=== PATIENT | female | born 1950 | race Caucasian/White ===

== ENCOUNTER 2019-10-22 16:28 | Emergency (ER) | payer MEDICARE, OTHER, SELFPAY ==
[2019-10-22 16:30] VITALS: BP 165/110; PULSE 123; PULSE 125; RESP 17; RESP 18; TEMP 36.2; O2SAT 97; O2SAT 98; BMI 31.1
--- NOTE | 2019-10-22 16:56 | ED.VIS.GEN ---
History of Present Illness Chief Complaint: Nosebleed Informant: Patient Onset: Today, Hours Context: Sudden Onset Timing: Intermittent Quality: Blood from predominately right naris Location: Right predominantly Current Severity: Moderate Maximum Severity: Severe Worsened by: Nothing Relieved by: Pressure Associated Symptoms: None Narrative: Patient is an elderly woman who presents with spontaneous nosebleed that predominately started on the right side several hours prior to presentation. She was talking on the phone. She denies history of trauma. She is not on an anticoagulant or antiplatelet medicine. She states there was blood noted in the back of her throat. The bleeding was not controlled with nose clip. She is presently squeezing her nose. There is no active bleeding at this time. Patient denies bruising easily. She denies black or maroon stool. Denies blood in her urine. Prior similar symptoms: No Recent Illness/Hospitalization: No - Past Medical History (1) Benign essential hypertension Status: Chronic (2) Depression Status: Chronic (3) Insomnia Status: Chronic Past Medical History - Allergies and Home Meds Allergies/Adverse Reactions: Allergies No Known Allergies Allergy (Verified 10/22/19 16:29) Primary Care Physician: Constantin Augustin III, MD [Primary Care Provider] - Prior records reviewed: Yes Surgical History: noncontributory Lives: Alone Smoking Status: Former smoker Alcohol: None Drugs: None Review of Systems General: Denies: Chills, Fever, Malaise ENT: Reports: - - Post axis. Denies: Bilateral ear pain, Rhinorrhea, Sore throat Cardiovascular: Denies: Chest pain, Palpitations Respiratory: Denies: Dyspnea, Cough, Dyspnea on exertion Gastrointestinal: Denies: Abdominal pain, Nausea, Vomiting Musculoskeletal: Denies: Myalgias, Arthralgias, Neck pain, Back pain Skin: Denies: Rash, Wounds Neurological: Denies: Headache, Parasthesia, Numbness Endocrine: Denies: Polyuria, Polydipsia Hematologic: Denies: Easy bruising, Easy bleeding Physical Exam Vital Signs/Narrative: Vital Signs Temp Pulse Resp BP Pulse Ox 10/22/19 16:30 97.2 F L 123 H 18 165/110 H 98 Inital Vital Signs reviewed: Yes General: Well nourished, Well developed, Obese, No Acute Distress Head: Normocephalic, Atraumatic Eyes: Perrl, EOMI ENT: Moist mucous membranes, No rhinorrhea, - - Noted right and left vestibule and posterior pharynx Neck: Supple, Nontender, No lymphadenopathy, No JVD Cardiovascular: Regular rate, Regular rhythm, No murmurs, Normal S1, Normal S2 Respiratory: No distress, CTA bilaterally Skin: Normal color, No rash, No Trauma. Negative for: Diaphoresis, Jaundice Neurological: Alert, Oriented x3, Cranial nerves II-XII grossly intact, Normal Strength, Normal Sensation Psychological: Normal affect, Normal Mood Diagnostic/Tx/Re-eval - Medical Decision Making Patient near his packed with cotton saturated Dimas solution bilaterally. Patient had identifiable anterior bleed over the middle of Jose Carlos box plexus on the right. The area was cauterized. She was observed for 30 minutes. She was ambulated. She is had no further bleeding after 1 hour of observation. Plan is to discharge to home to follow-up with ENT. Procedures Procedure(s): Silver nitrate sticks were used for cauterization of bleeding site right side, ED Disposition - Plan for ED Patient: Disposition: Home or Assisted Living Diagnosis: Acute anterior epistaxis Instructions: ED Epistaxis Adult Referrals: Constantin Augustin III, MD [Primary Care Provider] - Chandra Stewart MD [STAFF PHYSICIAN] - 3-5 Days
[2019-10-22] MEDS: Mixture 30 ML Bottle 20 ML TOPICAL (17:38)
[2019-10-22] MEDS: Silver Nitrate (BKC) 4 EACH TOPICAL (18:40)
[2019-10-22 19:23] VITALS: BP 157/91; PULSE 84; RESP 16; O2SAT 96
== END 2019-10-22 19:30 | disposition home or self-care (01) ==
PROVIDERS: Emergency Provider Emergency Medicine; PCP Family Medicine
DX: R04.0 Epistaxis (principal); I10 Essential (primary) hypertension; F32.9 Major depressive disorder, single episode, unspecified; Z79.899 Other long term (current) drug therapy; Z87.891 Personal history of nicotine dependence
CPT/HCPCS: 30901; 99282

== ENCOUNTER 2020-08-24 09:11 | Outpatient (RCR) | payer MEDICARE, OTHER, SELFPAY | END 2020-08-24 23:59 | LOC: IMMUN 09:11 | PROVIDERS: PCP Family Medicine; Visit Provider Family Medicine | DX: Z23 Encounter for immunization (principal) | CPT/HCPCS: 0011A; 0012A; 91301 ==

== ENCOUNTER 2022-02-15 14:30 | Outpatient (RCR) | payer MEDICARE, OTHER, SELFPAY ==
--- NOTE | 2022-02-18 16:36 | HP.PTEVAL_ITS ---
Patient's Visit Information YOVANI SUN is a 71 year old F referred to Physical Therapy by Dr. Kriss Meyer MD with a diagnosis of CERVICAL DYSTONIA. Date of Evaluation: 01/22/22 Physical Therapist: Tara Loo PT, Cert MDT - Visit Plan Frequency: 2-3x /Week Duration: 4-6 Weeks Plan: Pt compliant w/a good HEP w/stretches. Will focus on STM next rx both in supine and seated position (maybe even prone if cinthya'd). Gentle STM and Gentle Cervical Stretching. POSTURE CORRECTION/STRENGTHENING, INSTRUCTION IN APPROPRIATE BODY MECHANICS AND ACTIVITY MODIFICATIONS. TOMMY UE ROM (L UE tighter than right), STRETCHING AND STRENGTHENING (Left weaker). HEP IN STRUCTION. Cervical Strengthening with isometrics only. Manual Therapy for Trigger point release of neck muscles including Sternocleidomastoid. Physical Therapy to help treat the symptoms of dystonia that affect movement, posture, balance, stamina and performing everyday tasks like driving, walking, carrying and working. - Subjective Diagnosis: Cervical dystonia, also called spasmodic torticollis, is a painful condition in which your neck muscles contract involuntarily, causing your head to twist or turn to one side. Cervical dystonia can also cause your head to unc ontrollably tilt forward or backward. Work/Leisure: WORKS [employer] AT [employer]. A LOT OF COMPUTER WORK. Present symptoms: INTERMITTENT RIGHT NECK PAIN. CONSTANT RIGHT 5TH DIGIT NUMBNESS AND SOMETIMES TINGLING AND A BIT IN THE RING FINGER. LEFT UPPER ARM PAIN. INTERMITTENT L UE ELECTRICITY TINGLING. A NEED TO LOOK DOWN AND TO THE LEFT AT TIMES TO RELEIVES PRESSURE. SOMETIMES NERVE PAIN UP THE BACK OF HEAD. HARDNESS ON THE RIGHT NECK AREA. LEFT NECK TIGHTNESS. Present since: ABOUT 3 YEARS AGO. Pain Scale: Worst - 3/10 Least - 0/10. Currently: 0/10. Commenced as a result of: NO APPARENT REASON. Symptoms at onset: A NEED TO TURN HEAD AND LOOK TO THE LEFT WHILE WALKING AT NIGHT. Worse: STRESS, LACK OF SLEEP, FEELS LIKE A CONDITIONED RESPONSE SOMETIMES. Better: MASSAGE - TEMPORARY RELIEF, MAYBE HEAT, BEING ACTIVE. Disturbed sleep: SOMETIMES MAKE IT DIFFICULT TO GET TO SLEEP AT NIGHT. NO LONGER WAKING HER UP AT NIGHT. Previous history/Previous treatment: HAS BEEN TO TWO [facility] ABOUT 6 SESSIONS EA WITHOUT BENEFIT. MASSAGE THERAPY IN THE PAST WITH TEMPORARY BENEFIT. DRY NEEDLING IN [facility]ES WITH DPT ABOUT 2 TIMES WITHOUT MUCH BENEFIT. PT MASSAGE AND MANIPUATION AND EXERCISES X ABOUT 5-6 VISITS WITHOUT MUCH BENEFIT - BOTOX RECOMMENDED - REFERRED TO NEUROLOGIST AND GOT BOTOX November FOR THE FIRST TIME WITH SOME BENEFIT. NEUROLOGIST RECOMM ENDED PHYSICAL THERPAY AND MASSAGE TOGETHER WITH THE BOTOX NOW. JORGE FROM DR. SORENSEN JUL 2021 AND IT STOPPED THE NERVE PAIN UP THE BACK OF NECK INTO HEAD. MUSCLE RELAXER. Dizziness: NO. Tinnitis: NO. Nausea: NO. Shortness of Breath: NO. Difficulty Swollowing: NO. Gait: NORMAL. Accidents: NO. Unexplained weight loss: NO. Imaging: UNSUCCESSFUL MRI DUE TO TOO MUCH BODY MVMT. DID HAVE NECK X-RAYS SHOWING SOME ARTHRITIS PER PATIENT REPORT. PMH/Recent major surgery: HTN AND HIGH CHOLESTEROL. OTHER: HAS NOT BEEN ABLE TO DRIVE VERY FAR BECAUSE HEAD WAS MOVING SO MUCH AND DIDN'T FEEL SAFE BUT IS COMFORTABLE DRIVING LOCALLY. PATIENT REPORTS THAT SINCE HAVING THE BOTOX HER HEAD MVMTS ARE SO MUCH BETTER BUT SOME DAYS ARE BETTER THAN OTHERS. PATIENT REPORTS THAT SHE HAS RE-STARED HER HOME EX FROM LAST EPISODE OF CARE WITH PT 2 TIMES A DAY AND THEY ARE MUCH LESS PAINFUL THAN BEFORE THE BOTOX. EX'S: CERVICAL ISO'S MULTIPLE ANGLES TO THE RIGHT. R SCALENE STRETCHING, TOMMY UT ST RETCHING, PEC STRETCHING, CERVICAL RETRACTION, SUPINE NECK EXTENSION, SUPINE SHLD FLEXION STRETCHING (LEFT SHLD STIFFER THAN RIGHT). - Pain NECK Pain Intensity (Out of 10): 1 Comment: discomfort R UE Pain Intensity (Out of 10): 0 Comment: numbness in 5th digit L UE Pain Intensity (Out of 10): 0 - Objective Sitting Posture/Standing Posture: FH. RSH'S. ABLE TO HOLD HEAD MIDLINE. INCREASED KYPHOSIS. Other Observations: HEAD TENDS TO INTERMITTENTLY JERK TO LEFT ROTATION. Sensory deficit: TOMMY UE LIGHT TOUCH SENSATION IS GROSSLY INTACT AND SYMMETRICAL. OTHER: LEFT SHLD PAIN, DECREASED ROM AND STRENGTH. ROM deficit: TOMMY UE'S WFL BUT L SHLD APPROX 10% DECREASED ELEVATION COMPARED TO RIGHT. Motor deficit: TOMMY UE'S GROSSLY 5/5 WITH MMT'ING EXCEPT R SHLD 4/5, LEFT 4-/5. Cervical Mvmt Loss: Flex: NIL. Pro: NIL. Ext: MOD. Ret: MOD. RSB: MOD. LSB: MOD. R Rot: MOD. L Rot: MIN. PATIENT C/O INCREASED NECK PAIN WITH CERVICAL ROM TESTING INTO RIGHT ROTATION. Postural strength: POOR. Palpation: TIGHT TOMMY CERVICAL MUSCULATURE RIGHT > LEFT. TREATMENT: Ther Act: CURRENT HEP REVIEW AND ENCOURAGED PATIENT TO CONTINUE. - Balance/Special Test Scores Oswestry Neck Score: 11 - Goals Goal 1:: DECREASE C/O NECK AND TOMMY UE SX'S (L SHLD, R FINGERS) Goal Time Frame: 4-6 Weeks Goal 2:: IMPROVE PERSONAL CARE, SLEEP, DRIVING AND RECREATIONAL FUNCTION Goal Time Frame: 4-6 Weeks Goal 3:: INSTRUCT IN PROPHYLAXIS Goal Time Frame: 4-6 Weeks - Anticipated Interventions Patient/Client Instruction: Educate patient on: Condition, Plan of Care, Risk Factors, Benefits of Fitness Program For the Purpose of:: To improve self management Therapeutic Exercise to Include: Strength training, Body mechanics, Postural training, Flexibilty training, Neuromotor development, Scapular Strength/Stabilization For the Purpose of:: To decrease pain, To increase ROM, To improve muscle perfor shira and motor function, To increase tolerance to activity/condition/position, To improve ability of physical actions for home/community/work/leisure Manual Therapy Techniques to Include: Trigger point massage, Soft tissue mobilization Comment: Gentle Manual Cervical Traction Thermo therapy (hot pack): Yes Intermittent cervical traction: Yes - Gentle and Manually. For the Purpose of:: To decrease pain, To increase ROM, To improve nutrient delivery to tissue Thank you for the opportunity to evaluate your patient. For Medicare and Medicare HMO plans, please review the plan of care and approve it. It will need to be FAXED BACK to us at [phone] for Medicare purposes. For Medicare only, by signing this I certify the plan of care. Please let me know if there are questions or concerns regarding this plan of care. Physician Signatur e: Date:
--- NOTE | 2022-06-26 09:44 | HP.PT.NRP ---
YOVANI SUN was seen in my office for initial evaluation on 01/22/22. The following Plan of Care was established for this patient: Initial Frequency: 2-3x /Week Initial Duration: 4-6 Weeks Patient/Client Instruction: Educate patient on: Condition, Plan of Care, Risk Factors, Benefits of Fitness Program For the Purpose of:: To improve self management Therapeutic Exercise to Include: Strength training, Body mechanics, Postural training, Flexibilty training, Neuromotor development, Scapular Strength/Stabilization For the Purpose of:: To decrease pain, To increase ROM, To improve muscle performance and motor function, To increase tolerance to activity/condition/position, To improve ability of physical actions for home/community/work/leisure Manual Therapy Techniques to Include: Trigger point massage, Soft tissue mobilization Comment: Gentle Manual Cervical Traction Thermo therapy (hot pack): Yes Intermittent cervical traction: Yes - Gentle and Manually. For the Purpose of:: To decrease pain, To increase ROM, To improve nutrient delivery to tissue This patient was last seen in our office 02/15/22. Pertinent comments regarding their Physical therapy will appear below: This patient has not returned to Physical Therapy and is appropriate to return to MD for further follow-up as needed. At this point I will be discontinuing this patient from physical therapy. I would be happy to see this patient again in the future if found appropriate by the physician. Thank you! Tara Loo, PT, Cert MDT Balance/Gait/Functional tests - Balance/Special Test Scores Oswestry Neck Score: 11
== END 2022-02-15 19:00 | disposition home or self-care (01) ==
LOC: PT 14:30
PROVIDERS: PCP Family Medicine; Referring Provider Psychiatry & Neurology Neurology; Visit Provider Psychiatry & Neurology Neurology
DX: G24.3 Spasmodic torticollis (principal)
CPT/HCPCS: 97110; 97140; 97162; 97530

== ENCOUNTER → 2023-05-20 | Outpatient (CLI) | payer MEDICARE, OTHER, SELFPAY ==
--- NOTE | 2023-05-20 12:30 | RAD_ITS ---
STUDY: X-RAY - CERVICAL SPINE REASON FOR EXAM: Female, 72 years old. Pain. TECHNIQUE: 3 view(s) of the cervical spine were obtained. COMPARISON: July 2021. FINDINGS: Osteopenia. Normal anterior atlantoaxial articulation. Normal odontoid process. Reversal of the normal lordotic curve, unchanged. Diffuse moderate to marked uncovertebral and facet sclerosis. Stable 3 mm of anterolisthesis of C3 on C4. Marked intervertebral disc space narrowing at C4-5, C5-6, C6-7 and C7-T1. Osteophyte formation most marked at C5-6 and C6-7, unchanged. Normal soft tissues. RAD/Cerv Spine 2 or 3 Views IMPRESSION: Stable osteopenia with moderate to marked cervical spondylosis most prevalent at C5-6, C6-7 and C7-T1. No acute abnormality or erosive changes. Electronically Signed: Oren Loyola MD at 13:06 EST ,
== END | disposition home or self-care (01) ==
PROVIDERS: PCP Family Medicine; Referring Provider Anesthesiology Pain Medicine; Visit Provider Anesthesiology Pain Medicine
DX: M50.30 Other cervical disc degeneration, unspecified cervical region (principal); M47.812 Spondylosis without myelopathy or radiculopathy, cervical region
CPT/HCPCS: 72040

== ENCOUNTER → 2023-07-18 | Outpatient (CLI) | payer MEDICARE, OTHER, SELFPAY ==
--- OUTSIDE RECORDS SUMMARY | 2023-07-18 15:54 | XMS RPT_ITS | CCD ---
Author Name Unknown Address [address] [place] [address] [id number] [place] [address] Organization [facility] Care Team Providers Care Communication Equipment Mechanic Name Role Phone Pascual Patton MD Primary Care Provider SHYLA MEYER Attending Unavailable PASCUAL PATTON Primary Care Unavailable PASCUAL PATTON Primary Care Unavailable PASCUAL PATTON Referring Unavailable SHYLA MEYER Attending Unavailable PASCUAL PATTON Primary Care Unavailable PASCUAL PATTON Attending Unavailable PASCUAL PATTON Primary Care Unavailable SYHLA MEYER Attending Unavailable PASCUAL PATTON Primary Care Unavailable SHYLA MEYER Attending Unavailable PASCUAL PATTON Primary Care Unavailable PASCAUL PATTON Primary Care Unavailable PASCUAL APTTON Referring Unavailable PASCUAL PATTON Primary Care Unavailable ОЛЬГА ROONEY Referring Unavailable PASCUAL PATTON Primary Care Unavailable ОЛЬГА ROONEY Attending Unavailable SHYLA MEYER Referring Unavailable SHYLA MEYER Attending Unavailable PASCUAL PATTON Primary Care Unavailable Allergies Allergy Classification Reported Allergen(s) Allergy Type Date of Onset Reaction(s) Facility (20 sources) cashew nut allergenic extract; Translations: [CASHEW NUT] Drug Allergy 06-09-2007 [facility] Work Phone: Medications Current Medications Medication Drug Class(es) Dates Sig (Normalized) Sig (Original) DULoxetine 20 mg delayed release oral capsule (10 sources) Serotonin and Norepinephrine Reuptake Inhibitor Start: 05-02-2022 End: 06-06-2024 take 1 capsule by mouth once daily DULoxetine (CYMBALTA) 20 mg capsule Take 1 capsule by mouth once daily. 90 capsule 3 06/07/2023 06/06/2024 Active Completed/Discontinued Medications Medication Drug Class(es) Dates Sig (Normalized) Sig (Original) atorvastatin 20 mg oral tablet (20 sources) HMG-CoA Reductase Inhibitor Start: 05-20-2023 take 1 tablet by mouth once daily atorvastatin (LIPITOR) 20 mg tablet Indications: Hyperlipidemia LDL goal Take 1 tablet by mouth once daily. 90 tablet 3 05/20/2023 Active Problems Active Problems Problem Classification Problem Date Documented Date Episodic/Chronic Acquired foot deformities (20 sources) Acquired hallux rigidus; Translations: [Hallux rigidus, unspecified foot] Onset: 05-16-2007 05-16-2007 Chronic Disorders of lipid metabolism (20 sources) Hyperlipidemia; Translations: [Hyperlipidemia, unspecified] Onset: 03-29-2017 03-29-2017 Chronic Essential hypertension (20 sources) Essential hypertension; Translations: [Essential (primary) hypertension] Onset: 09-29-2010 05-11-2021 Chronic Immunizations and screening for infectious disease (1 source) Encounter for immunization; Translations: [Encounter for immunization] Onset: 05-20-2023 Episodic Other hereditary and degenerative nervous system conditions (7 sources) Isolated cervical dystonia; 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 Other nutritional; endocrine; and metabolic disorders (1 source) Hypercalcemia; Translations: [Hypercalcemia] Onset: 07-11-2023 Chronic Other upper respiratory disease (1 source) Other specified disorders of nose and nasal sinuses; Translations: [Rhinorrhea] Onset: 05-20-2023 Episodic Residual codes; unclassified (1 source) Postmenopausal state; Translations: [Asymptomatic menopausal state] 06-11-2022 Episodic Spondylosis; intervertebral disc disorders; other back problems (20 sources) Degeneration of cervical intervertebral disc; Translations: [Other cervical disc degeneration, unspecified cervical region] Onset: 05-07-2019 05-11-2021 Chronic Sprains and strains (1 source) Strain of muscle, fascia and tendon at neck level, sequela; Translations: [Strain of neck muscle, sequela] Onset: 05-20-2023 Episodic Past or Other Problems Problem Classification Problem Date Documented Da te Episodic/Chronic Headache; including migraine (11 sources) Chronic mixed headache syndrome; Translations: [Other headache syndrome] Onset: 05-17-2022 Episodic Other bone disease and musculoskeletal deformities (7 sources) Osteopenia; Translations: [Other specified disorders of bone density and structure, multiple sites] Onset: 06-18-2022 06-18-2022 Episodic Other nervous system disorders (11 sources) Tremor; Translations: [Tremor, unspecified] Onset: 05-17-2022 Episodic Other screening for suspected conditions (not mental disorders or infectious disease) (4 sources) Patient encounter status; Translations: [Encounter for screening mammogram for malignant neoplasm of breast] Onset: 12-24-2022 Episodic Spondylosis; intervertebral disc disorders; other back problems (12 sources) Torticollis; Translations: [Torticollis] Onset: 05-17-2022 Episodic Results Test Name Value Interpretation Reference Range Facil ity Vital Signs Date Time Vital Sign Value Performing Clinician Faci lit 01-23-2023 13:59-0400 Body height 157.5 cm Shyla Meyer MD Work Phone: [facility] 01-23-2023 13:59-0400 Body weight 77.11 kg Shyla Meyer MD Work Phone: [facility] 01-23-2023 13:59-0400 Diastolic blood pressure 83 mm[Hg] Shyla Meyer MD Work Phone: [facility] 01-23-2023 13:59-0400 Heart rate 77 /min Shyla Meyer MD Work Phone: [facility] 01-23-2023 13:59-0400 SaO2% (BldA) [Mass fraction] 97 % Shyla Meyer MD Work Phone: [facility] 01-23-2023 13:59-0400 Systolic blood pressure 125 mm[Hg] Shyla Meyer MD Work Phone: [facility] 12-20-2022 16:04-0400 Body height 157.5 cm Shyla Meyer MD Work Phone: [facility] 12-20-2022 16:04-0400 Body weight 77.52 kg Shyla Meyer MD Work Phone: [facility] 12-20-2022 16:04-0400 Diastolic blood pressure 92 mm[Hg] Shyla Meyer MD Work Phone: [facility] 12-20-2022 16:04-0400 Heart rate 69 /min Shyla Meyer MD Work Phone: [facility] 12-20-2022 16:04-0400 SaO2% (BldA) [Mass fraction] 96 % Shyla Meyer MD Work Phone: [facility] 12-20-2022 16:04-0400 Systolic blood pressure 139 mm[Hg] Shyla Meyer MD Work Phone: [facility] 09-20-2022 13:57-0400 Body height 157.5 cm Shyla Meyer MD Work Phone: [facility] 09-20-2022 13:57-0400 Body weight 77.61 kg Shyla Meyer MD Work Phone: [facility] 09-20-2022 13:57-0400 Diastolic blood pressure 87 mm[Hg] Shyla Meyer MD Work Phone: [facility] 09-20-2022 13:57-0400 Heart rate 71 /min Shyla Meyer MD Work Phone: [facility] 09-20-2022 13:57-0400 SaO2% (BldA) [Mass fraction] 98 % Shyla Meyer MD Work Phone: [facility] 09-20-2022 13:57-0400 Systolic blood pressure 145 mm[Hg] Shyla Meyer MD Work Phone: [facility] 08-09-2022 13:58-0500 Body height 157.5 cm Shyla Meyer MD Work Phone: [facility] 08-09-2022 13:58-0500 Body weight 78.2 kg Shyla Meyer MD Work Phone: [facility] 08-09-2022 13:58-0500 Diastolic blood pressure 89 mm[Hg] Shyla Meyer MD Work Phone: [facility] 08-09-2022 13:58-0500 Heart rate 72 /min Shyla Meyer MD Work Phone: [facility] 08-09-2022 13:58-0500 SaO2% (BldA) [Mass fraction] 97 % Shyla Meyer MD Work Phone: [facility] 08-09-2022 13:58-0500 Systolic blood pressure 163 mm[Hg] Shyla Meyer MD Work Phone: [facility] 05-02-2022 09:28-0400 Body height 157.5 cm Shyla Meyer MD Work Phone: [facility] 05-02-2022 09:28-0400 Body weight 78.7 kg Shyla Meyer MD Work Phone: [facility] 05-02-2022 09:28-0400 Diastolic blood pressure 85 mm[Hg] Shyla Meyer MD Work Phone: [facility] 05-02-2022 09:28-0400 Heart rate 72 /min Shyla Meyer MD Work Phone: [facility] 05-02-2022 09:28-0400 SaO2% (BldA) [Mass fraction] 97 % Shyla Meyer MD Work Phone: [facility] 05-02-2022 09:28-0400 Systolic blood pressure 162 mm[Hg] Shyla Meyer MD Work Phone: [facility] 12-22-2021 10:01-0400 Diastolic blood pressure 78 mm[Hg] Shyla Meyer MD Work Phone: [facility] 12-22-2021 10:01-0400 Heart rate 74 /min Shyla Meyer MD Work Phone: [facility] 12-22-2021 10:01-0400 Systolic blood pressure 133 mm[Hg] Shyla Meyer MD Work Phone: [facility] 12-22-2021 09:58-0400 Body weight 77.84 kg Shyla Meyer MD Work Phone: [facility] 12-22-2021 09:58-0400 SaO2% (BldA) [Mass fraction] 99 % Shyla Meyer MD Work Phone: [facility] 11-10-2021 10:58-0400 Diastolic blood pressure 86 mm[Hg] Shyla Meyer MD Work Phone: [facility] 11-10-2021 10:58-0400 Systolic blood pressure 130 mm[Hg] Shyla Meyer MD Work Phone: [facility] 11-10-2021 10:00-0400 Body height 157.5 cm Shyla Meyer MD Work Phone: [facility] 11-10-2021 10:00-0400 Body weight 76.2 kg Shyla Meyer MD Work Phone: [facility] 11-10-2021 10:00-0400 Heart rate 72 /min Shyla Meyer MD Work Phone: [facility] 11-10-2021 10:00-0400 SaO2% (BldA) [Mass fraction] 98 % Shyla Meyer MD Work Phone: [facility] 10-12-2021 13:19-0400 Body weight 76.2 kg Pascual Patton MD Work Phone: [facility] 10-12-2021 13:19-0400 Diastolic blood pressure 84 mm[Hg] Pascual Patton MD Work Phone: [facility] 10-12-2021 13:19-0400 Heart rate 72 /min Pascual Patton MD Work Phone: [facility] 10-12-2021 13:19-0400 Systolic blood pressure 132 mm[Hg] Pascual Patton MD Work Phone: [facility] Encounters Encounter Date Encounter Type Care Provider Facility Start: 07-11-2023 End: 07-12-2023 ambulatory [facility] Facility:[facility] Start: 06-27-2023 End: 06-28-2023 ambulatory [facility] Facility:[facility] Start: 06-07-2023 Refill Shyla toledo MD Work Phone: Neurology Procedures Date Procedure Procedure Detail Performing Clinician Start: 12-24-2022 End: 12-24-2022 Mammography Pascual Patton MD Work Phone: Start: 06-11-2022 Dxa bone density raudel dy 1/> sites axial skel Pascual Patton MD Work Phone: Start: 06-04-2022 Lipid 1996 panel - S tahir or Plasma Screen Wstr Start: 12-21-2021 End: 12-21-2021 Screening mammography bi 2-view breast inc cad Bulk Order Provider Start: 11-09-2021 Adult depression scr eening assessment Shyla Meyer MD Work Phone: Start: 10-26-2020 Mammography NA Jimenez PA-C Work Phone: Start: 05-30-2018 Colonoscopy NA Jimenez PA-C Work Phone: Start: 03-29-2017 Adult depression scr eening assessment NA Jimenez PA-C Work Phone: Plan of Treatment Date Care Activity Detail Author Start: 05-30-2028 Colonoscopy COLONOSCOPY [facility] Start: 05-30-2028 COLORECTAL CANCER SCREENING COLORECTAL CANCER SCREENING [facility] Start: 06-04-2027 Lipid 1996 panel - Serum or Plasma Lipid Screening [facility] Start: 06-04-2027 LIPID SCREEN LIPID SCREEN [facility] Start: 05-01-2026 LIPID SCREEN LIPID SCREEN [facility] Start: 07-08-2025 Urine microalbumin profile [facility] Start: 06-04-2025 DIABETES SCREEN DIABETES SCREEN [facility] Start: 06-04-2025 Diabetes Screening Diabetes Screening [facility] Start: 10-12-2024 DIABETES SCREEN DIABETES SCREEN [facility] Start: 05-20-2024 Annual PCP Team Chronic Disease Visit Annual PCP Team Chronic Disease Visit [facility] Start: 05-01-2024 DIABETES SCREEN DIABETES SCREEN [facility] Start: 12-25-2023 Mammography [facility] Start: 11-23-2023 ANNUAL PCP TEAM CHRONIC DISEASE VISIT ANNUAL PCP TEAM CHRONIC DISEASE VISIT [facility] Start: 05-17-2023 ANNUAL PCP TEAM CHRONIC DISEASE VISIT ANNUAL PCP TEAM CHRONIC DISEASE VISIT [facility] Start: 03-29-2023 Covid-19 Vaccine (7 - 2023-24 season) Covid-19 Vaccine (2022- season) [facility] Start: 03-01-2023 Influenza vaccination [facility] Start: 12-21-2022 Mammography MAMMOGRAM [facility] Start: 11-09-2022 Adult depression screening assessment DEPRESSION SCREENING [facility] Start: 10-12-2022 ANNUAL PCP TEAM CHRONIC DISEASE VISIT ANNUAL PCP TEAM CHRONIC DISEASE VISIT [facility] Start: 09-01-2022 COVID-19 VACCINE (6 - Moderna series) COVID-19 VACCINE (6 - Moderna series) [facility] Start: 07-01-2022 ADVANCE DIRECTIVE DISCUSSION ADVANCE DIRECTIVE DISCUSSION [facility] Start: 07-01-2022 DEPRESSION ASSESSMENT DEPRESSION ASSESSMENT [facility] Start: 05-11-2022 ANNUAL PCP TEAM CHRONIC DISEASE VISIT ANNUAL PCP TEAM CHRONIC DISEASE VISIT [facility] Start: 03-01-2022 Influenza vaccination INFLUENZA (#1) [facility] Start: 12-08-2021 COVID-19 VACCINE (5 - Booster for Moderna series) COVID-19 VACCINE (5 - Booster for Moderna series) [facility] Start: 11-23-2021 End: 01-23-2022 Thyrotropin [Units/volume] in Serum or Plasma TSH BLD Lab Routine Tremor Expected: 11/23/2021, Expires: 01/23/2022 [facility] Work Phone: Immunizations Immunization Date Immunization Notes Care Provider Raudel jaimes 05-20-2023 influenza (HD-IIV4) vaccine, age 65+ yr, high dose, quadrivalent, PF (FLUZONE HIGH-DOSE) Shyla Meyer MD Work Phone: [facility] 05-11-2022 influenza, high dose seasonal, preservative-free Shyla Meyer MD Work Phone: [facility] Work Phone: 05-11-2022 influenza virus vacc ine, unspecified formulation Screen Wstr [facility] 05-04-2022 COVID-19 booster vaccine, age 12+ yr, bivalent (MODERNA) Shyla Meyer MD Work Phone: [facility] Work Phone: 05-11-2021 influenza, high-dose , quadrivalent vaccine (FLUZONE HIGH DOSE QUADRIVALENT) NA Jimenez PA-C Work Phone: [facility] 11-25-2020 zoster vaccine recombinant Shyla Meyer MD Work Phone: [facility] 06-03-2020 zoster vaccine recombinant NA Jimenez PA-C Work Phone: [facility] 05-09-2020 influenza, high-dose , quadrivalent vaccine (FLUZONE HIGH DOSE QUADRIVALENT) NA Jimenez PA-C Work Phone: [facility] 04-27-2019 influenza, high dose seasonal, preservative-free NA Jimenez PA-C Work Phone: [facility] 04-23-2018 influenza, high dose seasonal, preservative-free NA Jimenez PA-C Work Phone: [facility] 04-11-2017 influenza, high dose seasonal, preservative-free NA Jimenez PA-C Work Phone: [facility] 04-11-2017 pneumococcal polysaccharide vaccine, 23 valent NA Jimenez PA-C Work Phone: [facility] 03-28-2016 influenza, high dose seasonal, preservative-free NA Jimenez PA-C Work Phone: [facility] 03-28-2016 pneumococcal conjuga te vaccine, 13 valent NA Jimenez PA-C Work Phone: [facility] 07-08-2015 tetanus toxoid, redu jacki diphtheria toxoid, and acellular pertussis vaccine, adsorbed NA Jimenez PA-C Work Phone: [facility] 12-08-2010 zoster vaccine, live NA Jericho on PA-C Work Phone: [facility] Work Phone: 10-13-2010 hepatitis A and hepatitis B vaccine NA Jimenez PA-C Work Phone: [facility] Work Phone: 04-07-2010 influenza virus vacc ine, whole virus Shyla Meyer MD Work Phone: [facility] 03-31-2010 hepatitis A and hepatitis B vaccine NA Jimenez PA-C Work Phone: [facility] 02-24-2010 hepatitis A and hepatitis B vaccine NA Jimenez PA-C Work Phone: [facility] 02-24-2010 typhoid vaccine, unspecified formulation NA Jimenez PA-C Work Phone: [facility] 12-28-2009 hepatitis A vaccine, unspecified formulation NA Jimenez PA-C Work Phone: [facility] 12-28-2009 hepatitis B vaccine, adult dosage NA Jimenez PA-C Work Phone: [facility] 12-28-2009 typhoid vaccine, unspecified formulation NA Jimenez PA-C Work Phone: [facility] 04-29-2006 diphtheria and tetan us toxoids, adsorbed for pediatric use NA Jimenez PA-C Work Phone: [facility] Work Phone: 07-01-1994 diphtheria and tetan us toxoids, adsorbed for pediatric use NA Jimenez PA-C Work Phone: [facility] Work Phone: Payers Date Payer Category Payer Medicare [id number] 2019 Unknown MMO MMO MEDICARE SUPPLEMENT [id number] 2019-Present [phone] [address] [place] [address] Indemnity [id number] 2019 Unknown [id number] 2015 Medicare MEDICARE MEDICAR E A AND B [id number] 2015-Present [phone] [address] [address] [place] [address] Medicare [id number] 2015 Medicare MEDICARE MEDICAR E A AND B [id number] 2015-Present [phone] [place] [address] Medicare [id number] 2015 Medicare [id number] Social History Date Type Detail Facility [facility]: [facility] Work Phone: Start: 05-11-2021 End: 05-20-2023 Alcohol intake Current drinker of alcohol (finding) [facility] Start: 05-07-2020 End: 05-16-2022 History SDOH Alcohol Frequency 4 [facility] Start: 05-07-2020 End: 11-22-2022 History SDOH Alcohol Std Drinks 1 [facility] Start: 06-20-2007 History SDOH Alcohol Comment 1 bethany per week [facility] Start: 05-07-2020 End: 11-22-2022 History SDOH Social Connections Phone 5 [facility] Start: 05-07-2020 End: 11-22-2022 History SDOH Social Connections Get Together 3 [facility] Start: 05-07-2020 End: 11-22-2022 History SDOH Physical Activity DPW 0 [facility] Start: 05-07-2020 End: 11-22-2022 History SDOH Stress 2 [facility] Start: 05-06-2020 Education 17 [facility] Start: 1950 Sex Assigned At Female C [facility] Start: 09-19-2021 End: 05-17-2022 Exposure to SARS-CoV-2 (event) Not sure [facility] Work Phone: Start: 12-15-2010 Tobacco use and exposure Smoke less tobacco non-user [facility] Work Phone: Start: 05-16-2022 History SDOH Social Connections Zoroastrian 98 [facility] Start: 11-22-2022 End: 01-23-2023 History of Social function [facility] Start: 11-22-2022 End: 01-23-2023 Social connection and isolation panel [facility] Do you belong to any clubs or organizations such as anglican groups, unions, fraternal or athletic groups, or school groups? No [facility] Are you now , , , , never or living with a partner? [facility] How often to you hav e a drink containing alcohol? 2-4 times a month [facility] How many standard dr inks containing alcohol do you have on a typical day? 1 or 2 [facility] How often do you hav e 6 or more drinks on 1 occasion? Never [facility] How hard is it for y ou to pay for the very basics like food, housing, medical care, and heating Not hard at all [facility] Do you feel stress - tense, restless, nervous, or anxious, or unable to sleep at night because your mind is troubled all the time - these days [OSQ] Not at all [facility] (I/We) worried wheth er (my/our) food would run out before (I/we) got money to buy more. Never true [facility] Start: 04-30-2021 Gender identity Identifies as female gender (finding) [facility] Clinical Notes 07-23-2007 to 06-07-2023 Telephone Encounter - Shyla Meyer MD - 06/07/2023 4:05 PM ESTTelephone Encounter - Keren Epps MA - 06/07/2023 3:19 PM ESTTelephone Encounter - Lucia Sparks - 06/07/2023 3:13 PM EST Note Date & Type Note Facility 06-07-2023 Miscellaneous Notes The following approved medication requests have been transmitted electronically. Requested Prescriptions Signed Prescriptions Disp Refills DULoxetine (CYMBALTA) 20 mg capsule 90 capsule 3 Sig: Take 1 capsule by mouth once daily. Authorizing Provider: SHYLA MEYER MD Patient has been identified by name and date of : Yes Last office visit in this department:05/02/23 NOV not scheduled Last script not sent to pharmacy RX INSTRUCTIONS: Patient aware RX will be sent to pharmacy. No need to notify patient. Patient phones requesting refills as follows: Requested Prescriptions Pending Prescriptions Disp Refills DULoxetine (CYMBALTA) 20 mg capsule 90 capsule 3 Sig: Take 1 capsule by mouth once daily. Please review and advise. Keren Epps MA PATIENT REQUESTING NEW SCRIPT FOR 90 DAYS AND ONLY HAS 3 DAYS LEFT OF MEDICATION AND REQUESTING REFILL RICHAR, IF POSSIBLE. THANK YOU. Patient has been identified by name and date of : Yes Requested Prescriptions Pending Prescriptions Disp Refills DULoxetine (CYMBALTA) 20 mg capsule 90 capsule 3 Sig: Take 1 capsule by mouth once daily. RX INSTRUCTIONS: Patient requesting a call when RX is approved and sent to the pharmacy. Please call patient at: [phone] Lucia Castaneda documented in this encounter [facility] 05-20-2023 Note HNO ID: [id number] Author: Ольга Rooney APRN.SHOE CLERK Service: ? Author Type: Nurse Practitioner Type: Progress Notes Filed: 05/20/2023 7:47 PM Note Text: This is a 72 year old female who presents today with: Patient presents with: 6 Month Exam HISTORY OF PRESENT ILLNESS: Kristin Sun is a 72 year old female. Patient presents with: 6 Month Exam Pt here for recheck. Problems with nose. Feels that is needs cleaned out/opened. Saline nasal spray. Tried claritin D - made nausea. Taking plain claritin now. Tried flonase, but didn't seem to help. Had seen ENT and no problems were found. Trouble with feeling narrowed and clear rhinorrhea. HTN: Patient is compliant with meds Yes Monitors bp at home: No. Denies side effects: Yes. Chest pain: No. Dyspnea: gets winded. Edema: No. Palpitations: No. Syncope: No. Headache: No. Dizziness: sometimes will get some dizziness from holding her breath to open nose up. HYPERLIPIDEMIA: Patient is taking medications: Yes. Patient is watching diet: No. Patient denies myalgias: Yes. 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 MULTIVITAMIN ORAL Take by mouth. ZINC ORAL Take by mouth. fluticasone (FLONASE) 50 mcg/actuation nasal spray Use 2 Sprays in each nostril once daily. Rinse mouth after use. cyclobenzaprine (FLEXERIL) 10 mg tablet Take 1 tablet by mouth once daily. (Patient taking differently: Take 10 mg by mouth once daily. 0.25 tab daily) hydroCHLOROthiazide (HYDRODIURIL, ESIDRIX) 12.5 mg capsule Take 1 capsule by mouth once daily. atorvastatin (LIPITOR) 20 mg tablet Take 1 tablet by mouth once daily. calcium carbonate/vitamin D3 (CALCIUM WITH VITAMIN D3 ORAL) Take 1 tablet by mouth once daily. coenzyme Q10 (CO Q-10) 100 mg cap capsule Take 1 capsule by mouth once daily. No current facility-administered medications for this visit. FAMILY HISTORY Problem Relation Age of Onset Hypertension Father 84 Lipids Father Alzheimer's Disease Mother Osteoporosis Mother Tics Brother Arthritis Paternal Grandmother other (CVA) Paternal Grandmother 66 Social History Tobacco Use Smoking status: Never Smokeless tobacco: Never Substance Use Topics Alcohol use: Yes Comment: 1 bethany per week Drug use: No EXAM: BP 118/84 Pulse 75 Resp 16 Wt 77.6 kg (171 lb) SpO2 95% BMI 31.28 kg/m? PHYSICAL EXAM: General Appearance: Well appearing, alert, in no acute distress, well-hydrated, well nourished.. Skin: Skin color, texture, turgor normal, no suspicious rashes or lesions. Head: Normocephalic, no masses, lesions, tenderness or abnormalities. Eyes: Anicteric sclera. Extraocular movements are intact. . Neck: Supple, no adenopathy; thyroid symmetric, normal size, no bruits. Lungs: Lungs clear to auscultation. No wheezing, rhonchi, rales.. Heart: RRR without murmur, gallop, or rubs. No ectopy. Extremities: No deformities, edema, skin discoloration, clubbing or cyanosis. Good capillary refill. Neurologic: Gait normal. ASSESSMENT/PLAN: 1. Primary hypertension - ICD9: 401.9, ICD10: I10 (primary diagnosis) - Controlled - Continue current medications - Recommend home blood pressure monitoring, to bring results to next visit - Encouraged sodium restriction, DASH or Mediterranean diet - Recommend regular aerobic exercise - HYDROCHLOROTHIAZIDE 12.5 MG CAPSULE - COMP METABOLIC PANEL - CBC + DIFF 2. Hyperlipidemia LDL goal <100 - ICD9: 272.4, ICD10: E78.5 - Control undetermined, due for labs - Continue current medications - Counseled on healthy diet and regular exercise - ATORVASTATIN 20 MG TABLET - LIPID PANEL BASIC 3. Strain of neck muscle, sequela - ICD9: 905.7, ICD10: S16.1XXS Refill -- uses sparingly (1/4 of a tab) - CYCLOBENZAPRINE 10 MG TABLET 4. Encounter for immunization - ICD9: V03.89, ICD10: Z23 - INFLUENZA VACCINE, PRSV FREE, AGE 65+ YR, HIGH DOSE, QUADRIVALENT (FLUZONE HIGH-DOSE) 5. Rhinorrhea - ICD9: 478.19, ICD10: J34.89 ? Vasomotor rhinorrhea. Will trial azelastine. Keep provider updated. - AZELASTINE 137 MCG (0.1 %) NASAL SPRAY AEROSOL Discussed treatment plan and patient voices understanding. Patient's questions answered appropriately. Medications and potential side effects were discussed and p (more content not included)... [facility] 05-02-2023 Note HNO ID: [id number] Author: Shyla Meyer MD Service: ? Author Type: Physician Type: Progress Notes Filed: 05/02/2023 7:15 PM Note Text: [facility] - FOLLOW UP EVALUATION Pascual Patton MD [address] [facility] [place] [address] Dear Pascual Patton MD: I had the pleasure of seeing Ms. Sun for follow-up today. As you know she is a 72 year old right-handed female with a history of neck pain and tremor since 2018. She is seen alone. Subjective Previous Plan-01/23/2023 Visit: Botox has been helpful for her tremor. Last injection caused head drop which is improved. We delayed injection 1 month to allow more time for Botox to wear off which is seems it has and now she is feeling more tightness. Injections repeated today with significantly lower doses. After obtaining informed consent, neurotoxin injections were carried out as outlined below. Interval History: Last injection again caused difficulty lifting up her head. Dose was reduced. Last injection was 3 months ago. Tremor hasn't been bad at all. Traveling lately so sleeping in unfamiliar beds and not the greatest pillows. Also was doing a lot of walking wearing a backpack. Since then noting pain at the left neck stretching traps to occipital area. Hard for her to say if feels neuropathic or muscular. Had injection with Dr. Cantu in the past for occipital neuralgia and this feels different from that. Seems different from her dystonia pain which was worse on the right side. Asking about Cymbalta. Blames it for dry mouth but on chart review this was present before it was started. Dry mouth comes and goes. Movement Disorders Medications Schedule - as of the start of the visit: Medications Flexeril 5 mg at bedtime Questionnaires: ALLERGIES Allergen Reactions Cashew Nut Current Outpatient Medications Medication Sig DULoxetine (CYMBALTA) 20 mg capsule Take 1 capsule by mouth once daily. MULTIVITAMIN ORAL Take by mouth. ZINC ORAL Take by mouth. cyclobenzaprine (FLEXERIL) 10 mg tablet Take 1 tablet by mouth once daily. (Patient taking differently: Take 10 mg by mouth once daily. 0.25 tab daily) hydroCHLOROthiazide (HYDRODIURIL, ESIDRIX) 12.5 mg capsule Take 1 capsule by mouth once daily. atorvastatin (LIPITOR) 20 mg tablet Take 1 tablet by mouth once daily. calcium carbonate/vitamin D3 (CALCIUM WITH VITAMIN D3 ORAL) Take 1 tablet by mouth once daily. coenzyme Q10 (CO Q-10) 100 mg cap capsule Take 1 capsule by mouth once daily. fluticasone (FLONASE) 50 mcg/actuation nasal spray Use 2 Sprays in each nostril once daily. Rinse mouth after use. (Patient not taking: Reported on 05/01/2023) No current facility-administered medications for this visit. Objective Vital Signs: BP 131/88 (BP Site: Left Arm, BP Position: Sitting, BP Cuff Size: Large Adult) Pulse 65 Ht 157.5 cm (5' 2 ) Wt 76.2 kg (168 lb 1.6 oz) SpO2 98% BMI 30.75 kg/m? Orthostatic Vitals: None for this encounter Weight: 76.2 kg (168 lb 1.6 oz) Height: 157.5 cm (5' 2 ) No LMP recorded. Patient is postmenopausal. Body mass index is 30.75 kg/m?. General Physical Examination: General: Awake, alert, interactive, no acute distress, good nutritional status, normal development, well-kept General Neurological Examination: Neurological Exam Mental Status Awake and alert. Language is fluent with no aphasia. Motor Mild right laterocollis. No head tremor today. Gait Normal gait. Pertinent Studies C-spine XR 01/23/19 4 views of the cervical spine demonstrate multilevel degenerative change with vertebral body osteophytosis and disc space narrowing, greatest at C5-6 and C6-7 where there is mild reversal of the normal cervical lordosis.. There are no vertebral body compression deformities and alignment is well maintained. Bilateral oblique views demonstrate mild to moderate foraminal narrowing at C4-5 and C7-T1 on the left and at C6-7 on the right. Severe foraminal narrowing is noted at C3-4 and C5-6 on the right and at C5-6 and C6-7 on the left. The atlantoaxial interval and craniocervical junction are intact. There is no prevertebral soft tissue abnormality. IMPRESSION: Degenerative changes as detailed in report. Assessment and Plan: Assessment Ms. Sun is a right-handed 72 year old year old female with Cervical dystonia. Botox has been helpful for her neck tightness and head tremor. She experienced head drop with dose of 200 units and then again with reduced dose of 130 units. We decided not to proceed with injections today. Continue taking Flexeril at night. We can resume Botox if needed. The new left sided pain seems different from her dystonia and she will see pain management again. The following are the current problems noted and addressed during this visit: Cervical dystonia (primary encounter diagnosis) Plan 05/02/2023 Visit: No Botox today - Continue Flexeril - Can tr (more content not included)... [facility] 01-23-2023 Note HNO ID: [id number] Author: Shyla Meyer MD Service: ? Author Type: Physician Type: Progress Notes Filed: 01/23/2023 2:53 PM Note Text: [facility] NEUR[facility] VIS[facility] Date: January 23, 2023 Name: Kristin Sun SUBJECTIVE: Subjective history Weakness seems to be better. Back of her neck is starting to feel tight. Tremor is intermittent. Historical/ Initial Dose Diagnosis: Cervical dystonia (G24.3) Date of diagnosis: 11/10/2021 Other treatments that have been tried and failed: Physical Therapy Medications Other Flexeril chiropractor, massage, dry needling Date of first neurotoxin treatment: 12/22/2021 Type of neurotoxin given: OnabotulinumtoxinA (Botox) Frequency of current neurotoxin treatment: 90 days Estimated frequency and duration of treatment: continue with current injection interval; will reassess after 1 year Last Injection Notes Date of last Injection: 09/20/2022 Type of neurotoxin: OnabotulinumtoxinA (Botox) Total amount injected: 200 units Degree of effectiveness of last injection: % Duration of effect: week(s) Side effects related to last injection: Weakness Current pain symptoms: No Current functional limitations: moderate Last neurotoxin regimen: Med right left midline Sternocleidomastoid 30 10 Splenius capitus 30 Scalene 10 10 Levator Scapulae 10 20 Trapezius 20 20 Semispinalis 20 20 Total: 200 Questionnaires: In addition, the following activities of daily living that may be affected by tremors were evaluated: Speaking: Not affected Feeding: Not affected Bringing Liquids to Mouth: Not affected Hygiene: Not affected Dressing: Not affected Writing: Not affected Working: Not affected Number of falls in the Last Month: 0 Mood/Behavior Depression: PHQ-9 Score: 2 usually representing no significant (0-4) depression. Anxiety: NANNETTE-7 Total Score: 0 usually representing no significant (0-4) anxiety. Finally, the following table shows the patient's overall global physical and mental health using the PROMIS scale: PROMIS-10 Flowsheet Row Office Visit from 11/22/2022 in Family Medicine [place] Office Visit from 08/09/2022 in Neurology Global Physical Health T Score 47.7 57.7 Global Mental Health T Score 53.3 53.3 0-10 Standard Pain Scale 4 4 *PROMIS-10 scoring scale: mean = 50, over 50 is above average, under 50 is below average Allergies: ALLERGIES Allergen Reactions Cashew Nut Current Medications: Current Outpatient Medications Medication Sig MULTIVITAMIN ORAL Take by mouth. ZINC ORAL Take by mouth. fluticasone (FLONASE) 50 mcg/actuation nasal spray Use 2 Sprays in each nostril once daily. Rinse mouth after use. cyclobenzaprine (FLEXERIL) 10 mg tablet Take 1 tablet by mouth once daily. DULoxetine (CYMBALTA) 20 mg capsule Take 1 capsule by mouth once daily. hydroCHLOROthiazide (HYDRODIURIL, ESIDRIX) 12.5 mg capsule Take 1 capsule by mouth once daily. atorvastatin (LIPITOR) 20 mg tablet Take 1 tablet by mouth once daily. calcium carbonate/vitamin D3 (CALCIUM WITH VITAMIN D3 ORAL) Take 1 tablet by mouth once daily. coenzyme Q10 (CO Q-10) 100 mg cap capsule Take 1 capsule by mouth once daily. No current facility-administered medications for this visit. OBJECTIVE: BP 125/83 (BP Site: Left Arm, BP Position: Sitting, BP Cuff Size: Large Adult) Pulse 77 Ht 157.5 cm (5' 2 ) Wt 77.1 kg (170 lb) SpO2 97% BMI 31.09 kg/m? Other notable exam findings: Mild right laterocollis. Reduced ROM with head turn to right. Very hypertrophied right SCM. minimal tremor today ASSESSMENT AND PLAN: Ms. Sun is a right-handed 72 year old female with Cervical dystonia (G24.3) . Botox has been helpful for her tremor. Last injection caused head drop which is improved. We delayed injection 1 month to allow more time for Botox to wear off which is seems it has and now she is feeling more tightness. Injections repeated today with significantly lower doses. After obtaining informed consent, neurotoxin injections were carried out as outlined below. Current Injection Note Type of neurotoxin: OnabotulinumtoxinA (Botox) Total amount drawn: 200 units Total amount injected: 130 units Total amount wasted: 70 units Dilution: 1 cc NSS/100 U Administered with EMG guidance: Yes Lot#: [id number] Exp Date: 09/2024 Today's neurotoxin regimen: Med right left midline Sternocleidomastoid 20 10 Splenius capitus 20 Scalene 10 10 Levator Scapulae 10 10 Trapezius 15 15 Semispinalis 5 5 Total: 130 Future plan of care: Follow up: 3 months Neurotoxin change: No Dose change:No Shyla Meyer MD January 23, 2023 2:18 PM Dept of NEUROLOGY TIME OUT/ PROCEDURE NOTE: Informed consent Kristin Sun Medical Record: [id number] Procedure: neurotoxin intramuscular injection The risks, benefits and anticipated outcomes of the procedure, the risks and benefits of the altern (more content not included)... [facility] 01-23-2023 History of Present illness Narrative Images from the original note were not included. [facility] NEUROTOXIN VISIT Date: January 23, 2023 Name: Kristin Sun SUBJECTIVE: Subjective history Weakness seems to be better. Back of her neck is starting to feel tight. Tremor is intermittent. Historical/ Initial Dose Diagnosis: Cervical dystonia (G24.3) Date of diagnosis: 11/10/2021 Other treatments that have been tried and failed: Physical Therapy Medications Other Flexeril chiropractor, massage, dry needling Date of first neurotoxin treatment: 12/22/2021 Type of neurotoxin given: OnabotulinumtoxinA (Botox) Frequency of current neurotoxin treatment: 90 days Estimated frequency and duration of treatment: continue with current injection interval; will reassess after 1 year Last Injection Notes Date of last Injection: 09/20/2022 Type of neurotoxin: OnabotulinumtoxinA (Botox) Total amount injected: 200 units Degree of effectiveness of last injection: % Duration of effect: week(s) Side effects related to last injection: Weakness Current pain symptoms: No Current functional limitations: moderate Last neurotoxin regimen: Med right left midline Sternocleidomastoid 30 10 Splenius capitus 30 Scalene 10 10 Levator Scapulae 10 20 Trapezius 20 20 Semispinalis 20 20 Total: 200 Questionnaires: In addition, the following activities of daily living that may be affected by tremors were evaluated: Speaking: Not affected Feeding: Not affected Bringing Liquids to Mouth: Not affected Hygiene: Not affected Dressing: Not affected Writing: Not affected Working: Not affected Number of falls in the Last Month: 0 Mood/Behavior Depression: PHQ-9 Score: 2 usually representing no significant (0-4) depression. Anxiety: NANNETTE-7 Total Score: 0 usually representing no significant (0-4) anxiety. Finally, the following table shows the patient's overall global physical and mental health using the PROMIS scale: PROMIS-10 Flowsheet Row Office Visit from 11/22/2022 in Family Medicine [place] Office Visit from 08/09/2022 in Neurology Global Physical Health T Score 47.7 57.7 Global Mental Health T Score 53.3 53.3 0-10 Standard Pain Scale 4 4 *PROMIS-10 scoring scale: mean = 50, over 50 is above average, under 50 is below average Allergies: ALLERGIES Allergen Reactions Cashew Nut Current Medications: Current Outpatient Medications Medication Sig MULTIVITAMIN ORAL Take by mouth. ZINC ORAL Take by mouth. fluticasone (FLONASE) 50 mcg/actuation nasal spray Use 2 Sprays in each nostril once daily. Rinse mouth after use. cyclobenzaprine (FLEXERIL) 10 mg tablet Take 1 tablet by mouth once daily. DULoxetine (CYMBALTA) 20 mg capsule Take 1 capsule by mouth once daily. hydroCHLOROthiazide (HYDRODIURIL, ESIDRIX) 12.5 mg capsule Take 1 capsule by mouth once daily. atorvastatin (LIPITOR) 20 mg tablet Take 1 tablet by mouth once daily. calcium carbonate/vitamin D3 (CALCIUM WITH VITAMIN D3 ORAL) Take 1 tablet by mouth once daily. coenzyme Q10 (CO Q-10) 100 mg cap capsule Take 1 capsule by mouth once daily. No current facility-administered medications for this visit. OBJECTIVE: BP 125/83 (BP Site: Left Arm, BP Position: Sitting, BP Cuff Size: Large Adult) Pulse 77 Ht 157.5 cm (5' 2 ) Wt 77.1 kg (170 lb) SpO2 97% BMI 31.09 kg/m Other notable exam findings: Mild right laterocollis. Reduced ROM with head turn to right. Very hypertrophied right SCM. minimal tremor today ASSESSMENT AND PLAN: Ms. Sun is a right-handed 72 year old female with Cervical dystonia (G24.3) . Botox has been helpful for her tremor. Last injection caused head drop which is improved. We delayed injection 1 month to allow more time for Botox to wear off which is seems it has and now she is feeling more tightness. Injections repeated today with significantly lower doses. After obtaining informed consent, neurotoxin injections were carried out as outlined below. Current Injection Note Type of neurotoxin: OnabotulinumtoxinA (Botox) Total amount drawn: 200 units Total amount injected: 130 units Total amount wasted: 70 units Dilution: 1 cc NSS/100 U Administered with EMG guidance: Yes Lot#: [id number] Exp Date: 09/2024 Today's neurotoxin regimen: Med right left midline Sternocleidomastoid 20 10 Splenius capitus 20 Scalene 10 10 Levator Scapulae 10 10 Trapezius 15 15 Semispinalis 5 5 Total: 130 Future plan of care: Follow up: 3 months Neurotoxin change: No Dose change:No Shyla Meyer MD January 23, 2023 2:18 PM Dept of NEUROLOGY TIME OUT/ PROCEDURE NOTE: Informed consent Kristin Sun Medical Record: [id number] Procedure: neurotoxin intramuscular injection The risks, benefits and anticipated outcomes of the procedure, the risks and benefits of the alternatives to the procedure and the roles and tasks of the personnel to be involved were discussed with the patient and the patient consents to the procedure and agrees to proceed. I verify that I personally obtained Kristin Sun's consent. Shyla Meyer MD January 23, 2023 2:18 PM UNIVERSAL PROTOCOL / SAFETY CHECKLIST Procedure to be Performed: neurotoxin injection Sign In: A Moment of CARE was completed. Personnel directly involved wiht the procedure wore the appropriate PPE (Personal Protective Equipment). No special equipment needed. Patient/Surrogate Stated/Verified: Patient name Date of Relative allergies The intended procedure Time Out Communication: Intended patient and procedure match the source documents. Consent documented and matches the intended procedure. No relevant labs, photos, and/or imaging studies were applicable for review. No correct side/site applicable for marking and visibility. Medications required for procedure verified. No fire risk assessment and interventions applicable. No implant(s) inserted. Sign Out: No specimen collected. Post-procedure follow-up management communicated and Plan of Care Visit completed when applicable. No instruments, equipment or retained foreign bodies applicable. -- Shyla Meyer MD documented in this encounter [facility] 12-27-2022 Miscellaneous Notes December 28, 2022 PID: [id number] Kristin Sun [address] [place] [address] Dear Ms. Sun, We are pleased to inform you that the results of your recent breast imaging exam on 12/24/2022 are normal. Early detection of cancer is very important. We also understand recommendations regarding breast cancer screening are controversial. Please discuss with your primary care provider which strategy is best for you and whether a mammogram is right for you. Your imaging studies and report will be kept on file at [facility] as part of your permanent medical record and are available for your continuing care. Thank you for allowing us to help in meeting your health care needs. Sincerely, Dr. Burleson Interpreting Radiologist [facility] (Normal over 40) documented in this encounter [facility] 12-24-2022 Note HNO ID: [id number] Author: Gilmer Cortes Service: ? Author Type: Medicaid Business Analyst Type: Progress Notes Filed: 12/24/2022 1:57 PM Note Text: Radiology Service Progress Note PATIENT NAME: Kristin Sun DATE OF SERVICE: December 24, 2022 TIME: 1:43 PM PATIENT IDENTITY VERIFICATION COMPLETED USING TWO (2) IDENTIFIERS: Name and Date of confirmed by patient verbally. FALL SCREENING: Has the patient had 2 falls in the last year or 1 fall with injury or currently using an Ambulatory Assistive Device (Walker, Cane, Wheelchair, Crutches, etc.)? No PATIENT GENDER DATA: Female. status: : No status: NO. PATIENT RELEVANT IMPLANT DATA REVIEWED: Not Applicable RADIOLOGY DEPARTMENT: Mammography PERIPHERAL IV DATA: Not applicable SIGNED BY: Gilmer Cortes December 24, 2022 1:43 PM [facility] 12-24-2022 History of Present illness Narrative Radiology Service Progress Note PATIENT NAME: Kristin uSn DATE OF SERVICE: December 24, 2022 TIME: 1:43 PM PATIENT IDENTITY VERIFICATION COMPLETED USING TWO (2) IDENTIFIERS: Name and Date of confirmed by patient verbally. FALL SCREENING: Has the patient had 2 falls in the last year or 1 fall with injury or currently using an Ambulatory Assistive Device (Walker, Cane, Wheelchair, Crutches, etc.)? No PATIENT GENDER DATA: Female. status: : No status: NO. PATIENT RELEVANT IMPLANT DATA REVIEWED: Not Applicable RADIOLOGY DEPARTMENT: Mammography PERIPHERAL IV DATA: Not applicable SIGNED BY: Gilmer Cortes December 24, 2022 1:43 PM documented in this encounter [facility] 12-20-2022 Note HNO ID: [id number] Author: Shyla Meyer MD Service: ? Author Type: Physician Type: Progress Notes Filed: 12/21/2022 3:18 PM Note Text: [facility] - FOLLOW UP EVALUATION Pascual Patton MD [address] [facility] [place] [address] Dear Pascual Patton MD: I had the pleasure of seeing Ms. Sun for follow-up today. As you know she is a 72 year old right-handed female with a history of neck pain and tremor since 2018. Subjective Previous Plan-12/22/2021 Visit: Botox today Interval History: Head drop started not long after the injections. Past 2 weeks getting better. Concerned about getting injections again today. Movement Disorders Medications Schedule - as of the start of the visit: Medications Questionnaires: In addition, the following activities of daily living that may be affected by tremors were evaluated: Speaking: Not affected Feeding: Not affected Bringing Liquids to Mouth: Not affected Hygiene: Not affected Dressing: Not affected Writing: Not affected Working: Not affected Number of falls in the Last Month: 0 Mood/Behavior Depression: PHQ-9 Score: 0 usually representing no significant (0-4) depression. Anxiety: NANNETTE-7 Total Score: 0 usually representing no significant (0-4) anxiety. Finally, the following table shows the patient's overall global physical and mental health using the PROMIS scale: PROMIS-10 Flowsheet Row Office Visit from 11/22/2022 in Family Medicine [place] Office Visit from 08/09/2022 in Neurology Global Physical Health T Score 47.7 57.7 Global Mental Health T Score 53.3 53.3 0-10 Standard Pain Scale 4 4 *PROMIS-10 scoring scale: mean = 50, over 50 is above average, under 50 is below average ALLERGIES Allergen Reactions Cashew Nut Current Outpatient Medications Medication Sig MULTIVITAMIN ORAL Take by mouth. ZINC ORAL Take by mouth. fluticasone (FLONASE) 50 mcg/actuation nasal spray Use 2 Sprays in each nostril once daily. Rinse mouth after use. cyclobenzaprine (FLEXERIL) 10 mg tablet Take 1 tablet by mouth once daily. DULoxetine (CYMBALTA) 20 mg capsule Take 1 capsule by mouth once daily. hydroCHLOROthiazide (HYDRODIURIL, ESIDRIX) 12.5 mg capsule Take 1 capsule by mouth once daily. atorvastatin (LIPITOR) 20 mg tablet Take 1 tablet by mouth once daily. calcium carbonate/vitamin D3 (CALCIUM WITH VITAMIN D3 ORAL) Take 1 tablet by mouth once daily. coenzyme Q10 (CO Q-10) 100 mg cap capsule Take 1 capsule by mouth once daily. No current facility-administered medications for this visit. Objective Vital Signs: BP 139/92 (BP Site: Left Arm, BP Position: Sitting, BP Cuff Size: Large Adult) Pulse 69 Ht 157.5 cm (5' 2 ) Wt 77.5 kg (170 lb 14.4 oz) SpO2 96% BMI 31.26 kg/m? Orthostatic Vitals: None for this encounter Weight: 77.5 kg (170 lb 14.4 oz) Height: 157.5 cm (5' 2 ) No LMP recorded. Patient is postmenopausal. Body mass index is 31.26 kg/m?. General Physical Examination: General: Awake, alert, interactive, no acute distress, good nutritional status, normal development, well-kept General Neurological Examination: Neurological Exam Mental Status Awake and alert. Language is fluent with no aphasia. Motor Mild right laterocollis. Reduced ROM with head turn to right. Very hypertrophied right SCM. Occasional minimal tremor today. Pertinent Studies C-spine XR 01/23/19 4 views of the cervical spine demonstrate multilevel degenerative change with vertebral body osteophytosis and disc space narrowing, greatest at C5-6 and C6-7 where there is mild reversal of the normal cervical lordosis.. There are no vertebral body compression deformities and alignment is well maintained. Bilateral oblique views demonstrate mild to moderate foraminal narrowing at C4-5 and C7-T1 on the left and at C6-7 on the right. Severe foraminal narrowing is noted at C3-4 and C5-6 on the right and at C5-6 and C6-7 on the left. The atlantoaxial interval and craniocervical junction are intact. There is no prevertebral soft tissue abnormality. IMPRESSION: Degenerative changes as detailed in report. Assessment and Plan: Assessment Ms. Sun is a right-handed 72 year old year old female with Cervical dystonia. Botox has been helpful for her tremor. Last injection caused head drop which is improved the past 2 weeks. Will delay injection 1 month to allow more time for Botox to wear off. Next injection will reduce semispinalis to 5-10 units. The following are the current problems noted and addressed during this visit: Cervical dystonia (primary encounter diagnosis) Plan 12/20/2022 Visit: No Botox today. Return 1 month. Updated Movement Disorders Medication Schedule: Medications Level of service : 37116 (20-29 min). Time spent 21 min on the day of service, which included preparing to see the patient, [id number] patient care, completing clinical documentation, performing a (more content not included)... [facility] 12-20-2022 History of Present illness Narrative [facility] - FOLLOW UP EVALUATION Pascual Patton MD [address] [facility] [place] [address] Dear Pascual Patton MD: I had the pleasure of seeing Ms. Sun for follow-up today. As you know she is a 72 year old right-handed female with a history of neck pain and tremor since 2018. Subjective Previous Plan-12/22/2021 Visit: Botox today Interval History: Head drop started not long after the injections. Past 2 weeks getting better. Concerned about getting injections again today. Movement Disorders Medications Schedule - as of the start of the visit: Medications Questionnaires: In addition, the following activities of daily living that may be affected by tremors were evaluated: Speaking: Not affected Feeding: Not affected Bringing Liquids to Mouth: Not affected Hygiene: Not affected Dressing: Not affected Writing: Not affected Working: Not affected Number of falls in the Last Month: 0 Mood/Behavior Depression: PHQ-9 Score: 0 usually representing no significant (0-4) depression. Anxiety: NANNETTE-7 Total Score: 0 usually representing no significant (0-4) anxiety. Finally, the following table shows the patient's overall global physical and mental health using the PROMIS scale: PROMIS-10 Flowsheet Row Office Visit from 11/22/2022 in Family Medicine [place] Office Visit from 08/09/2022 in Neurology Global Physical Health T Score 47.7 57.7 Global Mental Health T Score 53.3 53.3 0-10 Standard Pain Scale 4 4 *PROMIS-10 scoring scale: mean = 50, over 50 is above average, under 50 is below average ALLERGIES Allergen Reactions Cashew Nut Current Outpatient Medications Medication Sig MULTIVITAMIN ORAL Take by mouth. ZINC ORAL Take by mouth. fluticasone (FLONASE) 50 mcg/actuation nasal spray Use 2 Sprays in each nostril once daily. Rinse mouth after use. cyclobenzaprine (FLEXERIL) 10 mg tablet Take 1 tablet by mouth once daily. DULoxetine (CYMBALTA) 20 mg capsule Take 1 capsule by mouth once daily. hydroCHLOROthiazide (HYDRODIURIL, ESIDRIX) 12.5 mg capsule Take 1 capsule by mouth once daily. atorvastatin (LIPITOR) 20 mg tablet Take 1 tablet by mouth once daily. calcium carbonate/vitamin D3 (CALCIUM WITH VITAMIN D3 ORAL) Take 1 tablet by mouth once daily. coenzyme Q10 (CO Q-10) 100 mg cap capsule Take 1 capsule by mouth once daily. No current facility-administered medications for this visit. Objective Vital Signs: BP 139/92 (BP Site: Left Arm, BP Position: Sitting, BP Cuff Size: Large Adult) Pulse 69 Ht 157.5 cm (5' 2 ) Wt 77.5 kg (170 lb 14.4 oz) SpO2 96% BMI 31.26 kg/m Orthostatic Vitals: None for this encounter Weight: 77.5 kg (170 lb 14.4 oz) Height: 157.5 cm (5' 2 ) No LMP recorded. Patient is postmenopausal. Body mass index is 31.26 kg/m . General Physical Examination: General: Awake, alert, interactive, no acute distress, good nutritional status, normal development, well-kept General Neurological Examination: Neurological Exam Mental Status Awake and alert. Language is fluent with no aphasia. Motor Mild right laterocollis. Reduced ROM with head turn to right. Very hypertrophied right SCM. Occasional minimal tremor today. Pertinent Studies C-spine XR 01/23/19 4 views of the cervical spine demonstrate multilevel degenerative change with vertebral body osteophytosis and disc space narrowing, greatest at C5-6 and C6-7 where there is mild reversal of the normal cervical lordosis.. There are no vertebral body compression deformities and alignment is well maintained. Bilateral oblique views demonstrate mild to moderate foraminal narrowing at C4-5 and C7-T1 on the left and at C6-7 on the right. Severe foraminal narrowing is noted at C3-4 and C5-6 on the right and at C5-6 and C6-7 on the left. The atlantoaxial interval and craniocervical junction are intact. There is no prevertebral soft tissue abnormality. IMPRESSION: Degenerative changes as detailed in report. Assessment and Plan: Assessment Ms. Sun is a right-handed 72 year old year old female with Cervical dystonia. Botox has been helpful for her tremor. Last injection caused head drop which is improved the past 2 weeks. Will delay injection 1 month to allow more time for Botox to wear off. Next injection will reduce semispinalis to 5-10 units. The following are the current problems noted and addressed during this visit: Cervical dystonia (primary encounter diagnosis) Plan 12/20/2022 Visit: No Botox today. Return 1 month. Updated Movement Disorders Medication Schedule: Medications Level of service : 62246 (20-29 min). Time spent 21 min on the day of service, which included preparing to see the patient, [id number] patient care, completing clinical documentation, performing a medically appropriate examination, counseling and educating the patient/family/caregiver, and communicating with other HCPs (not separately reported). Thank you for allowing me to be part of the clinical care of this patient! I look forward to continued participation in the patient s care with you. Please do not hesitate to call with any questions. Sincerely, Shyla Meyer MD documented in this encounter [facility] 11-22-2022 Note HNO ID: [id number] Author: Pascual Patton MD Service: ? Author Type: Physician Type: Progress Notes Filed: 11/22/2022 4:28 PM Note Text: Patient presents with: 6 Month Exam HPI: Patient presents today for office visit for follow up. HTN: Patient is compliant with meds Yes Monitors bp at home: No. Denies side effects: Yes. Chest pain: No. Dyspnea: No. Edema: No. Palpitations: No. Syncope: No. Headache: No. Dizziness: No. Had been getting her botox. No pain currently. Still with tremor. Sees neurology again soon. Her nose feels like it needs reamed out. Has chronic rhinorrhea. Has been doing that for months. No itchy or runny nose. No fever or chills. Using saline nose drops. No cough. Was better when out of [place]. No myalgias. Component Latest Ref Rng AND Units 06/04/2022 Protein, Total 6.3 - 8.0 g/dL 6.9 Albumin 3.9 - 4.9 g/dL 4.4 Calcium 8.5 - 10.2 mg/dL 9.8 Bilirubin, Total 0.2 - 1.3 mg/dL 0.4 Alkaline Phosphatase 34 - 123 U/L 57 AST 13 - 35 U/L 33 ALT 7 - 38 U/L 17 Glucose 74 - 99 mg/dL 93 BUN 7 - 21 mg/dL 14 Creatinine 0.58 - 0.96 mg/dL 0.88 Sodium 136 - 144 mmol/L 140 Potassium 3.7 - 5.1 mmol/L 4.4 Chloride 97 - 105 mmol/L 102 CO2 22 - 30 mmol/L 22 Anion Gap 9 - 18 mmol/L 16 eGFR >=60 mL/min/1.73mA? 70 Cholesterol, Total <200 mg/dL 163 Triglyceride <150 mg/dL 59 HDL Cholesterol >39 mg/dL 47 Non HDL Cholesterol <130 mg/dL 116 Fasting Time hrs 12 VLDL Cholesterol <30 mg/dL 12 TC:HDL Ratio <5.10 3.47 LDL Cholesterol <100 mg/dL 104 (H) LDL:HDL Ratio <2.54 2.21 MEDICATIONS: Current Outpatient Medications Medication Sig cyclobenzaprine (FLEXERIL) 10 mg tablet Take 1 tablet by mouth once daily. DULoxetine (CYMBALTA) 20 mg capsule Take 1 capsule by mouth once daily. hydroCHLOROthiazide (HYDRODIURIL, ESIDRIX) 12.5 mg capsule Take 1 capsule by mouth once daily. atorvastatin (LIPITOR) 20 mg tablet Take 1 tablet by mouth once daily. calcium carbonate/vitamin D3 (CALCIUM WITH VITAMIN D3 ORAL) Take 1 tablet by mouth once daily. coenzyme Q10 (CO Q-10) 100 mg cap capsule Take 1 capsule by mouth once daily. morinda citrifolia fruit (TRIXIE ORAL) Take by mouth once daily. Magnesium 30 mg tablet Take by mouth once daily. Not sure of dosage PRN No current facility-administered medications for this visit. ALLERGIES: ALLERGIES Allergen Reactions Cashew Nut PAST MEDICAL HISTORY Diagnosis Date Essential hypertension, benign Hemorrhoids with eating cashews Hyperlipidemia LDL goal < 130 09/29/2010 PMH - PAST MEDICAL HISTORY OF Right toe spur PAST SURGICAL HISTORY Procedure Laterality Date COLONOSCOPY FLX DX W/COLLJ SPEC WHEN PFRMD 06/23/082017 COLONOSCOPY FLX DX W/COLLJ SPEC WHEN PFRMD 05/30/2018 Colonoscopy PAST SURGICAL HISTORY OF 05/2007 right 1st MPJ arthodesis with ORIF TONSILLECTOMY AND ADENOIDECTOMY T/A (under age 12 years) FAMILY HISTORY Problem Relation Age of Onset Hypertension Father 84 Lipids Father Alzheimer's Disease Mother Osteoporosis Mother Tics Brother Arthritis Paternal Grandmother other (CVA) Paternal Grandmother 66 Social History Tobacco Use Smoking status: Never Smokeless tobacco: Never Substance Use Topics Alcohol use: Yes Comment: 1 bethany per week Drug use: No Reviewed current medications, allergies, past medical history, surgical history, family history and social history today. REVIEW OF SYSTEMS All other reviewed and negative other than HPI. HEALTH MAINTENANCE: Reviewed health maintenance issues today and recommended the following in detail. ADVANCE DIRECTIVE DISCUSSION -has dpoa, sister in law is her surrogate. DEPRESSION ASSESSMENT due on 07/01/2022 MAMMOGRAM due on 12/21/2022 VITALS: BP 138/72 Pulse 61 Wt 75.8 kg (167 lb) SpO2 99% BMI 30.54 kg/m? Last 4 Encounter Wt Readings: Date: Wt: 09/20/2022 77.6 kg (171 lb 1.6 oz) 08/09/2022 78.2 kg (172 lb 6.4 oz) 05/17/2022 77.7 kg (171 lb 3.2 oz) 05/02/2022 78.7 kg (173 lb 8 oz) PHYSICAL EXAMINATION: General appearance: Well appearing, alert, in no acute distress, well-hydrated, well nourished. Skin: Skin color, texture, turgor normal, no suspicious rashes or lesions Head: Normocephalic, no masses, lesions, tenderness or abnormalities Eyes: Anicteric sclera. Pupils are equally round and reactive to light. Extraocular movements are intact. Ears: External ears normal, canals clear Nose/Sinuses: Nares normal, septum midline, mucosa normal, no drainage or sinus tenderness, no polyps seen. Neck: Supple, no adenopathy Lungs: Lungs clear to auscultation. No wheezing, rhonchi, rales Heart: RRR without murmur, gallop, or rubs. No ectopy Abdomen: Normal abdominal exam, Abdomen soft, non-tender. Bowel sounds normal. No masses, organomegaly Extremities: No deformities, edema, skin discoloration, clubbing or cyanosis. Good capillary refill. ASSESSMENT/PLAN: 1. Prim (more content not included)... [facility] 09-20-2022 Note HNO ID: [id number] Author: Shyla Meyer MD Service: ? Author Type: Physician Type: Progress Notes Filed: 09/20/2022 3:07 PM Note Text: [facility] Movement Disorders Neurotoxin Visit Date: September 20, 2022 Name: Kristin Sun SUBJECTIVE: Subjective history Head tremor is very much improved. Started Cymbalta on 05/07 and on 05/17 noticed her head was straight when looking at people. [place] the [place] 3 [place]. She had not driven out of town in over 1 year due to the head tremor. When she returned in early August she did not feel Botox had worn off so injections not completed. About 1 week later Botox started wearing off. Now with tremor, tilt and turn to left. Historical/ Initial Dose Diagnosis: Cervical dystonia (G24.3) Date of diagnosis: 11/10/2021 Other treatments that have been tried and failed: Physical Therapy Medications Other Flexeril chiropractor, massage, dry needling Date of first neurotoxin treatment: 12/22/2021 Type of neurotoxin given: OnabotulinumtoxinA (Botox) Frequency of current neurotoxin treatment: 90 days Estimated frequency and duration of treatment: continue with current injection interval; will reassess after 1 year Last Injection Notes Date of last Injection: 05/02/2022 Type of neurotoxin: OnabotulinumtoxinA (Botox) Total amount injected: 200 units Degree of effectiveness of last injection:100% Duration of effect: 13 week(s) Side effects related to last injection: None Current pain symptoms: No Current functional limitations: moderate Last neurotoxin regimen: Med right left midline Sternocleidomastoid 30 10 Splenius capitus 30 Scalene 10 10 Levator Scapulae 10 20 Trapezius 20 20 Semispinalis 20 20 Total: 200 Questionnaires: In addition, the following activities of daily living that may be affected by tremors were evaluated: Speaking: Not affected Feeding: Not affected Bringing Liquids to Mouth: Not affected Hygiene: Not affected Dressing: Not affected Writing: Not affected Working: Not affected Number of falls in the Last Month: None Mood/Behavior Depression: PHQ-9 Score: 1 usually representing no significant (0-4) depression. Anxiety: NANNETTE-7 Total Score: 0 usually representing no significant (0-4) anxiety. Finally, the following table shows the patient's overall global physical and mental health using the PROMIS scale: PROMIS-10 Flowsheet Row Office Visit from 08/09/2022 in Neurology Office Visit from 05/17/2022 in Family Medicine [place] Global Physical Health T Score 57.7 50.8 Global Mental Health T Score 53.3 53.3 0-10 Standard Pain Scale 4 3 *PROMIS-10 scoring scale: mean = 50, over 50 is above average, under 50 is below average Allergies: ALLERGIES Allergen Reactions Cashew Nut Current Medications: Current Outpatient Medications Medication Sig morinda citrifolia fruit (TRIXIE ORAL) Take by mouth once daily. DULoxetine (CYMBALTA) 20 mg capsule Take 1 capsule by mouth once daily. hydroCHLOROthiazide (HYDRODIURIL, ESIDRIX) 12.5 mg capsule Take 1 capsule by mouth once daily. atorvastatin (LIPITOR) 20 mg tablet Take 1 tablet by mouth once daily. Magnesium 30 mg tablet Take by mouth once daily. Not sure of dosage PRN calcium carbonate/vitamin D3 (CALCIUM WITH VITAMIN D3 ORAL) Take 1 tablet by mouth once daily. coenzyme Q10 (CO Q-10) 100 mg cap capsule Take 1 capsule by mouth once daily. cyclobenzaprine (FLEXERIL) 10 mg tablet Take 1 tablet by mouth once daily. (Patient not taking: Reported on 09/19/2022) No current facility-administered medications for this visit. OBJECTIVE: BP 145/87 (BP Site: Left Arm, BP Position: Sitting, BP Cuff Size: Regular Adult) Pulse 71 Ht 157.5 cm (5' 2 ) Wt 77.6 kg (171 lb 1.6 oz) SpO2 98% BMI 31.29 kg/m? Other notable exam findings: Mild right laterocollis. Reduced ROM with head turn to right. Very hypertrophied right SCM. No tremor today ASSESSMENT AND PLAN: Ms. Sun is a right-handed 71 year old female with Cervical dystonia (G24.3). Injections are working well. Repeated same injection pattern. After obtaining informed consent, neurotoxin injections were carried out as outlined below. Current Injection Note Type of neurotoxin: OnabotulinumtoxinA (Botox) Total amount drawn: 200 units Total amount injected: 200 units Total amount wasted: 0 units Dilution: 1 cc NSS/100 U Administered with EMG guidance: Yes Lot#: [id number] Exp Date: 10/2024 Today's neurotoxin regimen: Med right left midline Sternocleidomastoid 30 10 Splenius capitus 30 Scalene 10 10 Levator Scapulae 10 20 Trapezius 20 20 Semispinalis 20 20 Total: 200 Became presyncopal during injections. Sweaty, clammy. Paused procedure, gave water, ice pack, cool cloths. moved to exam bed to lay flat. repeat BP 108/70's. Lyons better after several minutes and procedure resumed. Remained on exam bed, (more content not included)... [facility] 09-20-2022 History of Present illness Narrative Images from the original note were not included. [facility] Neurotoxin Visit Date: September 20, 2022 Name: Kristin Sun SUBJECTIVE: Subjective history Head tremor is very much improved. Started Cymbalta on 05/07 and on 05/17 noticed her head was straight when looking at people. She drove herself to the airport 3 [place]. She had not driven out of town in over 1 year due to the head tremor. When she returned in early August she did not feel Botox had worn off so injections not completed. About 1 week later Botox started wearing off. Now with tremor, tilt and turn to left. Historical/ Initial Dose Diagnosis: Cervical dystonia (G24.3) Date of diagnosis: 11/10/2021 Other treatments that have been tried and failed: Physical Therapy Medications Other Flexeril chiropractor, massage, dry needling Date of first neurotoxin treatment: 12/22/2021 Type of neurotoxin given: OnabotulinumtoxinA (Botox) Frequency of current neurotoxin treatment: 90 days Estimated frequency and duration of treatment: continue with current injection interval; will reassess after 1 year Last Injection Notes Date of last Injection: 05/02/2022 Type of neurotoxin: OnabotulinumtoxinA (Botox) Total amount injected: 200 units Degree of effectiveness of last injection:100% Duration of effect: 13 week(s) Side effects related to last injection: None Current pain symptoms: No Current functional limitations: moderate Last neurotoxin regimen: Med right left midline Sternocleidomastoid 30 10 Splenius capitus 30 Scalene 10 10 Levator Scapulae 10 20 Trapezius 20 20 Semispinalis 20 20 Total: 200 Questionnaires: In addition, the following activities of daily living that may be affected by tremors were evaluated: Speaking: Not affected Feeding: Not affected Bringing Liquids to Mouth: Not affected Hygiene: Not affected Dressing: Not affected Writing: Not affected Working: Not affected Number of falls in the Last Month: None Mood/Behavior Depression: PHQ-9 Score: 1 usually representing no significant (0-4) depression. Anxiety: NANNETTE-7 Total Score: 0 usually representing no significant (0-4) anxiety. Finally, the following table shows the patient's overall global physical and mental health using the PROMIS scale: PROMIS-10 Flowsheet Row Office Visit from 08/09/2022 in Neurology Office Visit from 05/17/2022 in Family Medicine [place] Global Physical Health T Score 57.7 50.8 Global Mental Health T Score 53.3 53.3 0-10 Standard Pain Scale 4 3 *PROMIS-10 scoring scale: mean = 50, over 50 is above average, under 50 is below average Allergies: ALLERGIES Allergen Reactions Cashew Nut Current Medications: Current Outpatient Medications Medication Sig morinda citrifolia fruit (TRIXIE ORAL) Take by mouth once daily. DULoxetine (CYMBALTA) 20 mg capsule Take 1 capsule by mouth once daily. hydroCHLOROthiazide (HYDRODIURIL, ESIDRIX) 12.5 mg capsule Take 1 capsule by mouth once daily. atorvastatin (LIPITOR) 20 mg tablet Take 1 tablet by mouth once daily. Magnesium 30 mg tablet Take by mouth once daily. Not sure of dosage PRN calcium carbonate/vitamin D3 (CALCIUM WITH VITAMIN D3 ORAL) Take 1 tablet by mouth once daily. coenzyme Q10 (CO Q-10) 100 mg cap capsule Take 1 capsule by mouth once daily. cyclobenzaprine (FLEXERIL) 10 mg tablet Take 1 tablet by mouth once daily. (Patient not taking: Reported on 09/19/2022) No current facility-administered medications for this visit. OBJECTIVE: BP 145/87 (BP Site: Left Arm, BP Position: Sitting, BP Cuff Size: Regular Adult) Pulse 71 Ht 157.5 cm (5' 2 ) Wt 77.6 kg (171 lb 1.6 oz) SpO2 98% BMI 31.29 kg/m Other notable exam findings: Mild right laterocollis. Reduced ROM with head turn to right. Very hypertrophied right SCM. No tremor today ASSESSMENT AND PLAN: Ms. Sun is a right-handed 71 year old female with Cervical dystonia (G24.3). Injections are working well. Repeated same injection pattern. After obtaining informed consent, neurotoxin injections were carried out as outlined below. Current Injection Note Type of neurotoxin: OnabotulinumtoxinA (Botox) Total amount drawn: 200 units Total amount injected: 200 units Total amount wasted: 0 units Dilution: 1 cc NSS/100 U Administered with EMG guidance: Yes Lot#: [id number] Exp Date: 10/2024 Today's neurotoxin regimen: Med right left midline Sternocleidomastoid 30 10 Splenius capitus 30 Scalene 10 10 Levator Scapulae 10 20 Trapezius 20 20 Semispinalis 20 20 Total: 200 Became presyncopal during injections. Sweaty, clammy. Paused procedure, gave water, ice pack, cool cloths. moved to exam bed to lay flat. repeat BP 108/70's. Lyons better after several minutes and procedure resumed. Remained on exam bed, felt much better. Patient states she feels at baseline and comfortable to drive home. Future plan of care: Follow up: 3 months Neurotoxin change: No Dose change:No Shyla Meyer MD September 20, 2022 3:03 PM Dept of NEUROLOGY TIME OUT/ PROCEDURE NOTE: Informed consent Kristin Sun Medical Record: [id number] Procedure: neurotoxin intramuscular injection The risks, benefits and anticipated outcomes of the procedure, the risks and benefits of the alternatives to the procedure and the roles and tasks of the personnel to be involved were discussed with the patient and the patient consents to the procedure and agrees to proceed. I verify that I personally obtained Kristin Sun's consent. Shyla Meyer MD September 20, 2022 3:03 PM UNIVERSAL [employer]OTOCOL / SAFETY CHECKLIST Procedure to be Performed: neurotoxin injection Sign In: A Moment of CARE was completed. Personnel directly involved wiht the procedure wore the appropriate PPE (Personal Protective Equipment). No special equipment needed. Patient/Surrogate Stated/Verified: Patient name Date of Relative allergies The intended procedure Time Out Communication: Intended patient and procedure match the source documents. Consent documented and matches the intended procedure. No relevant labs, photos, and/or imaging studies were applicable for review. No correct side/site applicable for marking and visibility. Medications required for procedure verified. No fire risk assessment and interventions applicable. No implant(s) inserted. Sign Out: No specimen collected. Post-procedure follow-up management communicated and Plan of Care Visit completed when applicable. No instruments, equipment or retained foreign bodies applicable. -- Shyla Meyer MD documented in this encounter [facility] 08-09-2022 Note HNO ID: [id number] Author: Shyla Meyer MD Service: ? Author Type: Physician Type: Progress Notes Filed: 08/09/2022 2:50 PM Note Text: [facility] [facility] Neurotoxin Visit Date: August 09, 2022 Name: Kristin Sun SUBJECTIVE: Subjective history Head tremor is very much improved. Started Cymbalta on 05/07 and on 05/17 noticed her head was straight when looking at people. [place] herself to the airport 3 [place]. She had not driven out of town in over 1 year due to the head tremor. No tremor while in [place] last week. She has not needed any ibuprofen. She does not feel her symptoms are at all returning over the past few weeks or more. Historical/ Initial Dose Diagnosis: Cervical dystonia (G24.3) Date of diagnosis: 11/10/2021 Other treatments that have been tried and failed: Physical Therapy Medications Other Flexeril chiropractor, massage, dry needling Date of first neurotoxin treatment: 12/22/2021 Type of neurotoxin given: OnabotulinumtoxinA (Botox) Frequency of current neurotoxin treatment: 90 days Estimated frequency and duration of treatment: continue with current injection interval; will reassess after 1 year Last Injection Notes Date of last Injection: 05/02/2022 Type of neurotoxin: OnabotulinumtoxinA (Botox) Total amount injected: 200 units Degree of effectiveness of last injection:100% Duration of effect: 12 week(s) Side effects related to last injection: None Current pain symptoms: No Current functional limitations: moderate Last neurotoxin regimen: Med right left midline Sternocleidomastoid 30 10 Splenius capitus 30 Scalene 10 10 Levator Scapulae 10 20 Trapezius 20 20 Semispinalis 20 20 Total: 200 Questionnaires: In addition, the following activities of daily living that may be affected by tremors were evaluated: Speaking: Not affected Feeding: Not affected Bringing Liquids to Mouth: Not affected Hygiene: Not affected Dressing: Not affected Writing: Not affected Working: Not affected Number of falls in the Last Month: 0 Mood/Behavior Depression: PHQ-9 Score: 1 usually representing no significant (0-4) depression. Anxiety: NANNETTE-7 Total Score: 3 usually representing no significant (0-4) anxiety. Finally, the following table shows the patient's overall global physical and mental health using the PROMIS scale: PROMIS-10 Flowsheet Row Office Visit from 08/09/2022 in Neurology Office Visit from 05/17/2022 in Family Medicine [place] Global Physical Health T Score 57.7 50.8 Global Mental Health T Score 53.3 53.3 0-10 Standard Pain Scale 4 3 *PROMIS-10 scoring scale: mean = 50, over 50 is above average, under 50 is below average Allergies: ALLERGIES Allergen Reactions Cashew Nut Current Medications: Current Outpatient Medications Medication Sig cyclobenzaprine (FLEXERIL) 10 mg tablet Take 1 tablet by mouth once daily. DULoxetine (CYMBALTA) 20 mg capsule Take 1 capsule by mouth once daily. hydroCHLOROthiazide (HYDRODIURIL, ESIDRIX) 12.5 mg capsule Take 1 capsule by mouth once daily. atorvastatin (LIPITOR) 20 mg tablet Take 1 tablet by mouth once daily. calcium carbonate/vitamin D3 (CALCIUM WITH VITAMIN D3 ORAL) Take 1 tablet by mouth once daily. coenzyme Q10 (CO Q-10) 100 mg cap capsule Take 1 capsule by mouth once daily. Magnesium 30 mg tablet Take by mouth once daily. Not sure of dosage (Patient not taking: Reported on 08/08/2022) No current facility-administered medications for this visit. OBJECTIVE: BP 163/89 (BP Site: Left Arm, BP Position: Sitting, BP Cuff Size: Regular Adult) Pulse 72 Ht 157.5 cm (5' 2 ) Wt 78.2 kg (172 lb 6.4 oz) SpO2 97% BMI 31.53 kg/m? Other notable exam findings: Mild right laterocollis. Reduced ROM with head turn to right. Very hypertrophied right SCM. No tremor today ASSESSMENT AND PLAN: Ms. Sun is a right-handed 71 year old female with Cervical dystonia (G24.3). Her symptoms are very much improved since last visit. Unclear what is related to Botox vs Cymbalta or both. Symptoms are not returning yet. Decided not to proceed with injections today. Will have her return in 4-6 weeks and reassess. Would like to wait for Botox effect to wear off before injecting again so we know which intervention is responsible for her relief. Continue Cymbalta at current dose. Future plan of care: Follow up: 4-6 weeks Neurotoxin change: No Dose change:No Shyla Meyer MD August 09, 2022 2:47 PM Dept of NEUROLOGY Medical Decision Making: Problems: Moderate: 1+ chronic illnesses with change Risk: Moderate: Drug management Medical Decision Making Level: 4 - Moderate [facility] 08-09-2022 History of Present illness Narrative Images from the original note were not included. [facility] Neurotoxin Visit Date: August 09, 2022 Name: Kristin Sun SUBJECTIVE: Subjective history Head tremor is very much improved. Started Cymbalta on 05/07 and on 05/17 noticed her head was straight when looking at people. She drove herself to the airport 3 times. She had not driven out of town in over 1 year due to the head tremor. No tremor while in [place] last week. She has not needed any ibuprofen. She does not feel her symptoms are at all returning over the past few weeks or more. Historical/ Initial Dose Diagnosis: Cervical dystonia (G24.3) Date of diagnosis: 11/10/2021 Other treatments that have been tried and failed: Physical Therapy Medications Other Flexeril chiropractor, massage, dry needling Date of first neurotoxin treatment: 12/22/2021 Type of neurotoxin given: OnabotulinumtoxinA (Botox) Frequency of current neurotoxin treatment: 90 days Estimated frequency and duration of treatment: continue with current injection interval; will reassess after 1 year Last Injection Notes Date of last Injection: 05/02/2022 Type of neurotoxin: OnabotulinumtoxinA (Botox) Total amount injected: 200 units Degree of effectiveness of last injection:100% Duration of effect: 12 week(s) Side effects related to last injection: None Current pain symptoms: No Current functional limitations: moderate Last neurotoxin regimen: Med right left midline Sternocleidomastoid 30 10 Splenius capitus 30 Scalene 10 10 Levator Scapulae 10 20 Trapezius 20 20 Semispinalis 20 20 Total: 200 Questionnaires: In addition, the following activities of daily living that may be affected by tremors were evaluated: Speaking: Not affected Feeding: Not affected Bringing Liquids to Mouth: Not affected Hygiene: Not affected Dressing: Not affected Writing: Not affected Working: Not affected Number of falls in the Last Month: 0 Mood/Behavior Depression: PHQ-9 Score: 1 usually representing no significant (0-4) depression. Anxiety: NANNETTE-7 Total Score: 3 usually representing no significant (0-4) anxiety. Finally, the following table shows the patient's overall global physical and mental health using the PROMIS scale: PROMIS-10 Flowsheet Row Office Visit from 08/09/2022 in Neurology Office Visit from 05/17/2022 in Family Medicine [place] Global Physical Health T Score 57.7 50.8 Global Mental Health T Score 53.3 53.3 0-10 Standard Pain Scale 4 3 *PROMIS-10 scoring scale: mean = 50, over 50 is above average, under 50 is below average Allergies: ALLERGIES Allergen Reactions Cashew Nut Current Medications: Current Outpatient Medications Medication Sig cyclobenzaprine (FLEXERIL) 10 mg tablet Take 1 tablet by mouth once daily. DULoxetine (CYMBALTA) 20 mg capsule Take 1 capsule by mouth once daily. hydroCHLOROthiazide (HYDRODIURIL, ESIDRIX) 12.5 mg capsule Take 1 capsule by mouth once daily. atorvastatin (LIPITOR) 20 mg tablet Take 1 tablet by mouth once daily. calcium carbonate/vitamin D3 (CALCIUM WITH VITAMIN D3 ORAL) Take 1 tablet by mouth once daily. coenzyme Q10 (CO Q-10) 100 mg cap capsule Take 1 capsule by mouth once daily. Magnesium 30 mg tablet Take by mouth once daily. Not sure of dosage (Patient not taking: Reported on 08/08/2022) No current facility-administered medications for this visit. OBJECTIVE: BP 163/89 (BP Site: Left Arm, BP Position: Sitting, BP Cuff Size: Regular Adult) Pulse 72 Ht 157.5 cm (5' 2 ) Wt 78.2 kg (172 lb 6.4 oz) SpO2 97% BMI 31.53 kg/m Other notable exam findings: Mild right laterocollis. Reduced ROM with head turn to right. Very hypertrophied right SCM. No tremor today ASSESSMENT AND PLAN: Ms. Sun is a right-handed 71 year old female with Cervical dystonia (G24.3). Her symptoms are very much improved since last visit. Unclear what is related to Botox vs Cymbalta or both. Symptoms are not returning yet. Decided not to proceed with injections today. Will have her return in 4-6 weeks and reassess. Would like to wait for Botox effect to wear off before injecting again so we know which intervention is responsible for her relief. Continue Cymbalta at current dose. Future plan of care: Follow up: 4-6 weeks Neurotoxin change: No Dose change:No Shyla Meyer MD August 09, 2022 2:47 PM Dept of NEUROLOGY Medical Decision Making: Problems: Moderate: 1+ chronic illnesses with change Risk: Moderate: Drug management Medical Decision Making Level: 4 - Moderate documented in this encounter [facility] 06-11-2022 History of Present illness Narrative Radiology Service Progress Note PATIENT NAME: Kristin Sun DATE OF SERVICE: June 11, 2022 TIME: 12:35 PM PATIENT IDENTITY VERIFICATION COMPLETED USING TWO (2) IDENTIFIERS: Name and Date of confirmed by patient verbally. FALL SCREENING: Has the patient had 2 falls in the last year or 1 fall with injury or currently using an Ambulatory Assistive Device (Walker, Cane, Wheelchair, Crutches, etc.)? No PATIENT GENDER DATA: Female. status: : No status: NO. PATIENT RELEVANT IMPLANT DATA REVIEWED: Not Applicable RADIOLOGY DEPARTMENT: Bone Density PERIPHERAL IV DATA: Not applicable SIGNED BY: RT Little(R) June 11, 2022 12:35 PM documented in this encounter [facility] 05-02-2022 History of Present illness Narrative Images from the original note were not included. [facility] Neurotoxin Visit Date: May 02, 2022 Name: Kristin Sun SUBJECTIVE: Subjective history Head movement is still most bothersome symptom. Was pretty good during [place] trip in early December. Does feel the movements were better rather than being distracted and not noticing them- feels daughter would have said something. January 21 head tremor returned and has gradually worsened since then. Movements are exhausting. Feels best after massage therapy. Gets hand traction. Has this every 2 weeks and benefit lasts a day. Sometimes entire body hurts. Takes ibuprofen. Dry mouth started March or late January. No new medications except taking cava to sleep but had the dry mouth before. Left arm with reduced ROM raising it overhead. No known rotator cuff troubles. Little finger on right hand still numb for several months. Not getting worse. Feeling anxious and having difficulty sleeping. Never had anxiety before. Historical/ Initial Dose Diagnosis: Cervical dystonia (G24.3) Date of diagnosis: 11/10/2021 Other treatments that have been tried and failed: Physical Therapy Medications Other Flexeril chiropractor, massage, dry needling Date of first neurotoxin treatment: 12/22/2021 Type of neurotoxin given: OnabotulinumtoxinA (Botox) Frequency of current neurotoxin treatment: 90 days Estimated frequency and duration of treatment: continue with current injection interval; will reassess after 1 year Last Injection Notes Date of last Injection: 12/22/2021 Type of neurotoxin: OnabotulinumtoxinA (Botox) Total amount injected: 170 units Degree of effectiveness of last injection:40% Duration of effect: 4 week(s) Side effects related to last injection: None Current pain symptoms: Yes neck Current functional limitations: moderate Questionnaires: In addition, the following areas that may be affected by abnormal involuntary movements were evaluated: Daily activities Difficulties with eatin (none) Difficulties in dressin (none) Difficulties with hygiene activities: 0 (none) Difficulties with handwritin (none) Difficulties with doing hobbies and other activities: 0 (none) Difficulties turning in bed: 0 (none) Difficulties getting out of bed, car or chair: 0 (none) Tremors/Gait/Balance Shaking or tremors: Yes (mild) Walking and balance problems: 0 (none) Number of falls in the Last Month: None Gait freezin (none) Autonomic/Pain Lightheadeness on standing: Yes (slight) Urinary problems: 0 (none) Constipation problems: 0 (none) Pain and other sensations: Yes (moderate) Speech/Swallowing Speech problems: 0 (none) Droolin (none) Chewing and swallowing problems: 0 (none) Sleep/Fatigue Sleep problems: Yes (mild) Daytime sleepiness: 0 (none) Fatigue: Yes (slight) Mood/Behavior Depression: PHQ-9 Score: 3 usually representing no significant (0-4) depression. Anxiety: NANNETTE-7 Total Score: 5 usually representing mild (5-9) anxiety. Finally, the following table shows the patient's overall global physical and mental health using the PROMIS scale: PROMIS-10 Flowsheet Row Office Visit from 05/02/2022 in Neurology Office Visit from 11/10/2021 in Neurology Global Physical Health T Score 47.7 47.7 Global Mental Health T Score 50.8 53.3 0-10 Standard Pain Scale 3 2 *PROMIS-10 scoring scale: mean = 50, over 50 is above average, under 50 is below average Allergies: ALLERGIES Allergen Reactions Cashew Nut Current Medications: Current Outpatient Medications Medication Sig Magnesium 30 mg tablet Take by mouth once daily. Not sure of dosage calcium carbonate/vitamin D3 (CALCIUM WITH VITAMIN D3 ORAL) Take 1 tablet by mouth once daily. coenzyme Q10 (CO Q-10) 100 mg cap capsule Take 1 capsule by mouth once daily. DULoxetine (CYMBALTA) 20 mg capsule Take 1 capsule by mouth once daily. hydroCHLOROthiazide (HYDRODIURIL, ESIDRIX) 12.5 mg capsule Take 1 capsule by mouth once daily. cyclobenzaprine (FLEXERIL) 10 mg tablet Half tablet every other night atorvastatin (LIPITOR) 20 mg tablet Take 1 tablet by mouth once daily. Current Facility-Administered Medications Medication Dose Route Frequency onabotulinum toxin type A 200 Units injection (BOTOX) 200 Units INTRAMUSCULAR ONCE OBJECTIVE: BP 162/85 (BP Site: Left Arm, BP Position: Sitting, BP Cuff Size: Large Adult) Pulse 72 Ht 157.5 cm (5' 2 ) Wt 78.7 kg (173 lb 8 oz) SpO2 97% BMI 31.73 kg/m Other notable exam findings: Left torticollis, mild right laterocollis. Reduced ROM with head turn to right. Very hypertrophied right SCM. Frequent large amplitude, irregular, slow no-no head oscillation more than tremor. ASSESSMENT AND PLAN: Ms. Sun is a right-handed 71 year old female with Cervical dystonia (G24.3). Little improvement with first injection at last visit. Head movement is most bothersome symptom. Doses increased today for better efficacy. Does not want EMG at this time for the right finger numbness. Discussed treating anxiety and she is agreeable. Will start Cymbalta 20 mg daily. After obtaining informed consent, neurotoxin injections were carried out as outlined below. Current Injection Note Type of neurotoxin: OnabotulinumtoxinA (Botox) Total amount drawn: 200 units Total amount injected: 200 units Total amount wasted: 0 units Dilution: 1 cc NSS/100 U Administered with EMG guidance: Yes Lot#: [id number] Exp Date: 09/2023 Today's neurotoxin regimen: Med right left midline Sternocleidomastoid 30 10 Splenius capitus 30 Scalene 10 10 Levator Scapulae 10 20 Trapezius 20 20 Semispinalis 20 20 Total: 200 Future plan of care: Follow up: 3 months Neurotoxin change: No Dose change:No Medical Decision Making: Problems: Moderate: 1+ chronic illnesses with change Risk: Moderate: Drug management Medical Decision Making Level: 4 - Moderate Shyla Meyer MD May 02, 2022 12:56 PM Dept of NEUROLOGY TIME OUT/ PROCEDURE NOTE: Informed consent Kristin Sun Medical Record: [id number] Procedure: neurotoxin intramuscular injection The risks, benefits and anticipated outcomes of the procedure, the risks and benefits of the alternatives to the procedure and the roles and tasks of the personnel to be involved were discussed with the patient and the patient consents to the procedure and agrees to proceed. I verify that I personally obtained Kristin Sun's consent. Shyla Meyer MD May 02, 2022 12:56 PM UNIVERSAL PROTOCOL / SAFETY CHECKLIST Procedure to be Performed: neurotoxin injection Sign In: A Moment of CARE was completed. Personnel directly involved wiht the procedure wore the appropriate PPE (Personal Protective Equipment). No special equipment needed. Patient/Surrogate Stated/Verified: Patient name Date of Relative allergies The intended procedure Time Out Communication: Intended patient and procedure match the source documents. Consent documented and matches the intended procedure. No relevant labs, photos, and/or imaging studies were applicable for review. No correct side/site applicable for marking and visibility. Medications required for procedure verified. No fire risk assessment and interventions applicable. No implant(s) inserted. Sign Out: No specimen collected. Post-procedure follow-up management communicated and Plan of Care Visit completed when applicable. No instruments, equipment or retained foreign bodies applicable. -- Shyla Meyer MD documented in this encounter [facility] 02-26-2022 Miscellaneous Notes Duplicate fax. See 02/19 encounter. CELSO Brown, RN February 26, 2022 12:04 PM documented in this encounter [facility] 02-19-2022 Miscellaneous Notes Received fax from [facility] including Initial Evaluation for Rehabilitation Services for the patient. Placed in KA's inbox for review and signature. Will fax upon completion. CELSO Brown, RN February 19, 2022 9:27 AM documented in this encounter [facility] 07-20-2022 Miscellaneous Notes Received voicemail from patient on Sat01/17/2022 3:52 PM Transcript below: Hi my name is Kristin Sun. Date of 1950. I was there and got I think six Botox injections on December 22 and to the week of December 31, about half way in that week, My little finger on my right hand, is about half numb. I'm just wondering is that one of the side effects of Botox. Is this something that I need to be concerned about? Or should I try to see if PT can work it out? just feels like the nerve must be pinched somewhere to make it feel like that and then I do have a nerve somewhere on the left side that kind of, not constantly, but sometimes will you know run all the way down my into that hand. So if you could give me a call back. My number is [phone]. I also am working so if I'm not able to answer the phone please leave me a detail message. Thanks so much. I appreciate your help. Madeleine. Prudencio lombardo. This was the patient's initial Botox injection. Injected for cervical dystonia according to this chart. Right Left Sternocleidomastoid 20 10 Splenius capitus 20 Scalene 10 10 Levator Scapulae 10 10 Trapezius 20 20 Semispinalis 20 20 (Other) Update shared with MD SAADIA. RN will contact patient with SAADIA's response and guidance accordingly. CELSO Brown, RN January 17, 2022 4:06 PM documented in this encounter [facility] 12-22-2021 History of Present illness Narrative Images from the original note were not included. [facility] Neurotoxin Visit Date: December 22, 2021 Name: Kristin Sun SUBJECTIVE: Historical/ Initial Dose Diagnosis: Cervical dystonia (G24.3) Date of diagnosis:11/10/21 Other treatments that have been tried and failed: Physical Therapy, Medications, and chiropractor, massage, dry needling Date of first neurotoxin treatment: December 22, 2021 Type of neurotoxin given: Botox: J0585 Frequency of current neurotoxin treatment: 90days Estimated frequency and duration of treatment: continue with current injection interval; will reassess after 1 year More pain than before. The occipital pain has stopped. Now having electrical pain radiating down the left arm. Unclear why she has this change. Comes and goes. Can trigger it with certain head positions. Some of the neck pain has shifted left. No weakness in the hand. Movement Disorders/Pertinent Medications Schedule - as of the start of the visit: ALLERGIES Allergen Reactions Cashew Nut Current Medications: Current Outpatient Medications Medication Sig Magnesium 30 mg tablet Take by mouth once daily. Not sure of dosage atorvastatin (LIPITOR) 20 mg tablet Take 1 tablet by mouth once daily. hydroCHLOROthiazide 12.5 mg capsule Take 1 capsule by mouth once daily. cyclobenzaprine (FLEXERIL) 10 mg tablet Take 1 tablet by mouth three times daily as needed for muscle spasm. (Patient taking differently: Take 10 mg by mouth. Half tablet every other night ) calcium carbonate/vitamin D3 (CALCIUM WITH VITAMIN D3 ORAL) Take 1 tablet by mouth once daily. coenzyme Q10 (CO Q-10) 100 mg cap capsule Take 1 capsule by mouth once daily. No current facility-administered medications for this visit. OBJECTIVE: BP 133/78 Pulse 74 Wt 77.8 kg (171 lb 9.6 oz) SpO2 99% BMI 31.39 kg/m Special features on today's visit:Left torticollis, mild right laterocollis. Reduced ROM with head turn to right. Very hypertrophied right SCM. Frequent large amplitude, irregular, slow no-no head oscillation more than tremor. ASSESSMENT AND PLAN: Ms. Sun is a right-handed 71 year old female with Cervical dystonia (G24.3). Here for first Botox injection. Goals are to address pain, movement, posture. Noting left arm radicular pain. If worsens or does not improve with Botox then consider returning to pain management for consideration of JORGE or other treatment. The following are the current problems noted and addressed during this visit: Cervical dystonia (primary encounter diagnosis) Plan 12/22/2021 Visit: 1. Botox today 2. Updated Pertinent Medication Schedule: PROCEDURE NOTE: After obtaining informed consent, neurotoxin injections were carried out as outlined below. TIME OUT/ PROCEDURE NOTE: UNIVERSAL PROTOCOL / SAFETY CHECKLIST Procedure to be Performed: Botulinum toxin injection Sign In: A Moment of CARE was completed. Personnel directly involved with the procedure wore the appropriate PPE (Personal Protective Equipment). No special equipment needed. Patient/Surrogate Stated/Verified: PATIENT VERIFIED(optional for EMERGENT procedures): Patient name, Date of , Relevant allergies and The intended procedure Time Out Communication: Intended patient and procedure match the source documents. Consent documented and matches the intended procedure. No relevant labs, photos, and/or imaging studies were applicable for review. No correct side/site applicable for marking and visibility. Medications required for procedure verified. No fire risk assessment and interventions applicable. No implant(s) inserted. Sign Out: SIGN OUT (optional for EMERGENT procedures): No specimen collected. No instruments, equipment or retained foreign bodies applicable. Post-procedure follow-up management communicated and Plan of Care Visit completed when applicable. Current Injection Note (12/22/2021) Type of neurotoxin: Botox: J0585 Total amount drawn: 200 units Total amount injected: 170 units Total amount wasted: 30 units Dilution: NS 1:1 Administered with EMG guidance: Yes Injection Site: Cervical dystonia: CPT 44916 Right Left Sternocleidomastoid 20 10 Splenius capitus 20 Scalene 10 10 Levator Scapulae 10 10 Trapezius 20 20 Semispinalis 20 20 (Other) Future plan of care: Return in about 3 months (around 03/24/2022) for Botox. Shyla Meyer M.D. Clinical Finger Lift Operator, [facility] Staff, [facility] Line Department of Neurology [facility] documented in this encounter [facility] 12-22-2021 Nurse Note Patient presents with: Established Patient: botox injrction documented in this encounter [facility] 12-22-2021 Miscellaneous Notes December 22, 2021 PID: [id number] Kristin Sun [address] [place] [id number] Dear Ms. Jesus, We are pleased to inform you that the results of your recent breast imaging exam on 12/21/2021 are normal. Early detection of cancer is very important. We also understand recommendations regarding breast cancer screening are controversial. Please discuss with your primary care provider which strategy is best for you and whether a mammogram is right for you. Your imaging studies and report will be kept on file at [facility] as part of your permanent medical record and are available for your continuing care. Thank you for allowing us to help in meeting your health care needs. Sincerely, Dr. Montejo Interpreting Radiologist [facility] (Normal over 40) documented in this encounter [facility] 12-21-2021 History of Present illness Narrative Radiology Service Progress Note PATIENT NAME: Kristin Sun DATE OF SERVICE: December 21, 2021 TIME: 1:32 PM PATIENT IDENTITY VERIFICATION COMPLETED USING TWO (2) IDENTIFIERS: Name and Date of confirmed by patient verbally. FALL SCREENING: Has the patient had 2 falls in the last year or 1 fall with injury or currently using an Ambulatory Assistive Device (Walker, Cane, Wheelchair, Crutches, etc.)? No PATIENT GENDER DATA: Female. status: : No status: NO. PATIENT RELEVANT IMPLANT DATA REVIEWED: Not Applicable RADIOLOGY DEPARTMENT: Mammography PERIPHERAL IV DATA: Not applicable SIGNED BY: Ava Hidalgo [employer] December 21, 2021 1:32 PM Radiology Service Progress Note PATIENT NAME: Kristin Sun DATE OF SERVICE: December 21, 2021 TIME: 1:32 PM PATIENT IDENTITY VERIFICATION COMPLETED USING TWO (2) IDENTIFIERS: Name and Date of confirmed by patient verbally. FALL SCREENING: Has the patient had 2 falls in the last year or 1 fall with injury or currently using an Ambulatory Assistive Device (Walker, Cane, Wheelchair, Crutches, etc.)? No PATIENT GENDER DATA: Female. status: : No status: NO. PATIENT RELEVANT IMPLANT DATA REVIEWED: Not Applicable RADIOLOGY DEPARTMENT: Mammography PERIPHERAL IV DATA: Not applicable SIGNED BY: RT Gudelia(R) December 21, 2021 1:32 PM documented in this encounter [facility] 11-10-2021 History of Present illness Narrative [facility] - NEW PATIENT EVALUATION Pascual Patton [address] [facility] [id number] Pascual Patton MD [address] [facility] [address] Patton: Thank you for refering Ms. Sun to our clinic today. As you know she is a 71 year old right-handed female who is seen in consultation for evaluation of neck pain and tremor since 2018. She is seen with her sister in-law. Subjective HISTORY OF PRESENT ILLNESS: Initial HPI Gradual onset of neck pain for 3-4 years. First noted her head wanted to pull left when going on walks. Now it moves when she drives. Does ok reading. Can be slight tremor or worse. Right-sided pain back of her neck, trapezius, between shoulder blades. Once had pain radiating down the left arm to hand. Can have pain radiating up her head. Can delay her getting to sleep. Takes 1.2 Flexeril 4 times a day at bedtime. Causes dry mouth, dry nose so not worth it daily. Looking down is most comfortable. No sensory trick. Holds her chin but is exerting pressure. Can get fine tremor. Tried massage, chiropractor, PT, dry needling. Massages and dry needling helped for that day. Saw Dr. Cantu, had injection and that helped the nerve pain radiating up her head. Couldn't complete MRI due to head movement. No other headaches besides the pain radiating from neck. No weakness or numbness in hands. Balance affected by her head movement but otherwise is ok. In addition, the following areas that may be affected by abnormal involuntary movements were evaluated: Daily activities Difficulties with eatin (none) Difficulties in dressin (none) Difficulties with hygiene activities: 0 (none) Difficulties with handwritin (none) Difficulties with doing hobbies and other activities: Yes (mild) Difficulties turning in bed: 0 (none) Difficulties getting out of bed, car or chair: Yes (slight) Tremors/Gait/Balance Shaking or tremors: Yes (moderate): Walking and balance problems: Yes (slight) Number of falls in the Last Month: 0 Gait freezin (none) Autonomic/Pain Lightheadeness on standing: Yes (slight) Urinary problems: 0 (none) Constipation problems: 0 (none) Pain and other sensations: Yes (moderate): Speech/Swallowing Speech problems: 0 (none) Droolin (none) Chewing and swallowing problems: 0 (none) Sleep/Fatigue Sleep problems: Yes (moderate): Daytime sleepiness: 0 (none) Fatigue: Yes (slight) REM sleep behavior disorder: Restless Legs Syndrome: Mood/Behavior Depression: PQH-9 = 4 usually representing no significant (0-4) depression. Anxiety: NANNETTE-7 = 6 usually representing mild (5-9) anxiety. Finally, the following table shows the patient's overall global physical and mental health using the PROMIS scale: PROMIS-10 Office Visit from 11/10/2021 in Neurology Office Visit from 05/09/2020 in Family Medicine [place] Global Physical Health T Score 47.7 54.1 Global Mental Health T Score 53.3 53.3 0-10 Standard Pain Scale 2 4 *PROMIS-10 scoring scale: mean = 50, over 50 is above average, under 50 is below average Movement Disorders Medications Schedule - as of the start of the visit: Review of Systems Review of Systems Constitutional: Negative Eyes Negative for Change in vison not corrected by glasses and Vision loss or change Hent Negative for Hearing Loss, Difficulty Swallowing, Tinnitus and Recent change in speech or voice Cardiovascular Positive for Lightheadedness Negative for Chest Pain and Leg pain with walking Respiratory Positive for SOB with exertion Negative for SOB at rest, Cough, Wheezing and Snoring GI: Negative : Negative Endocrine Positive for Heat Intolerance Negative for Excessive Thirst and Menstrual Cycle Irregularities Musculoskeletal Positive for Back Pain, Joint Swelling, Stiff Joints and Muscle Pain Integumentary: Negative Heme/Lymph: Negative Allergy/Immunologic Positive for Nasal Congestion Negative for Swollen Nodes Neurologic Positive for Memory Problems, Headache, Numbness/Tingling and Weakness Negative for Double Vision, Trouble Swallowing and Slurred Speech Psychiatric Positive for Stress or Conflicts and Anxiety Negative for Depression, Irritability, Hallucinations and Delusions Patient's Review of Systems has been reviewed with the patient and updated as appropriate. ALLERGIES Allergen Reactions Cashew Nut Current Outpatient Medications Medication Sig Magnesium 30 mg tablet Take by mouth once daily. Not sure of dosage atorvastatin (LIPITOR) 20 mg tablet Take 1 tablet by mouth once daily. hydroCHLOROthiazide 12.5 mg capsule Take 1 capsule by mouth once daily. cyclobenzaprine (FLEXERIL) 10 mg tablet Take 1 tablet by mouth three times daily as needed for muscle spasm. (Patient taking differently: Take 10 mg by mouth. Half tablet every other night ) calcium carbonate/vitamin D3 (CALCIUM WITH VITAMIN D3 ORAL) Take 1 tablet by mouth once daily. coenzyme Q10 (CO Q-10) 100 mg cap capsule Take 1 capsule by mouth once daily. No current facility-administered medications for this visit. Past Medical and Surgical History: has a past medical history of Essential hypertension, benign, Hemorrhoids, Hyperlipidemia LDL goal < 130 (09/29/2010), and PMH - PAST MEDICAL HISTORY OF. has a past surgical history that includes tonsillectomy & adenoidectomy <age 12; past surgical history of (05/2007); colonoscopy flx dx w/collj spec when pfrmd (06/23/08); and colonoscopy flx dx w/collj spec when pfrmd (05/30/2018). Social History Tobacco Use Smoking status: Never Smoker Smokeless tobacco: Never Used Substance Use Topics Alcohol use: Yes Comment: 1 bethany per week Drug use: No Family History: family history includes Alzheimer's Disease in her mother; Arthritis in her paternal grandmother; CVA (age of onset: 66) in her paternal grandmother; Hypertension (age of onset: 84) in her father; Lipids in her father; Osteoporosis in her mother; Tics in her brother. In addition, the patient denies any family history of PD/parkinsonism, tremor, other involuntary movement disorders. Objective Vital Signs: BP 130/86 (BP Site: Left Arm, BP Position: Sitting, BP Cuff Size: Regular Adult) Pulse 72 Ht 157.5 cm (5' 2 ) Wt 76.2 kg (168 lb) SpO2 98% BMI 30.73 kg/m General Physical Examination: General: Awake, alert, interactive, no acute distress, good nutritional status, normal development, well-kept General Neurological Examination: Neurological Exam Mental Status Awake and alert. Speech is normal. Language is fluent with no aphasia. Fund of knowledge is appropriate for level of education. Cranial Nerves CN III, IV, : Extraocular movements intact bilaterally. CN V: Facial sensation is normal. CN VII: Full and symmetric facial movement. CN VIII: Hearing is normal. CN IX, X: Palate elevates symmetrically CN XI: Shoulder shrug strength is normal. CN XII: Tongue midline without atrophy or fasciculations. Motor Normal muscle tone. The following abnormal movements were seen: Left torticollis, mild right laterocollis. Reduced ROM with head turn to right. Very hypertrophied right SCM. Frequent large amplitude, irregular, slow no-no head oscillation more than tremor. No resting, action, or postural tremors of the upper extremities. No rigidity or bradykinesia. Right Left Shoulder abduction 5 5 Elbow flexion 5 5 Wrist extension 5 5 Finger abduction 5 5 Hip flexion 5 5 Knee flexion 5 5 Dorsiflexion 5 5 Sensory Light touch is normal in upper and lower extremities. Reflexes Right Left Brachioradialis 2+ 2+ Biceps 2+ 2+ Patellar 0 0 Achilles Tr 0 Plantar Downgoing Downgoing Coordination Right: [id number] normal. Rapid alternating movement normal. Left: Gegecm-cq-qvqf normal. Pubr-dx-ubwa normal. Gait Stable gait. Pertinent Studies C-spine XR 01/23/19 4 views of the cervical spine demonstrate multilevel degenerative change with vertebral body osteophytosis and disc space narrowing, greatest at C5-6 and C6-7 where there is mild reversal of the normal cervical lordosis.. There are no vertebral body compression deformities and alignment is well maintained. Bilateral oblique views demonstrate mild to moderate foraminal narrowing at C4-5 and C7-T1 on the left and at C6-7 on the right. Severe foraminal narrowing is noted at C3-4 and C5-6 on the right and at C5-6 and C6-7 on the left. The atlantoaxial interval and craniocervical junction are intact. There is no prevertebral soft tissue abnormality. IMPRESSION: Degenerative changes as detailed in report. Assessment and Plan: Assessment Ms. Sun is a right-handed 71 year old female with cervical dystonia. Exam notable for abnormal head posture, reduced ROM, twisting head movements all consistent with cervical dystonia. Pain is more bothersome to her than the head movements. She has tried and failed multiple treatment modalities. Discussed treatment with Botox and she would like to proceed. Will start PA process and have her return. Also with headaches very consistent with occipital neuralgia likely exacerbated by her dystonia. She was unable to complete MRI of brain and C-spine ordered by PCP due to her head movements. Neurological exam is unremarkable except for the dystonia. No UMN signs to indicate brain or cervical spine pathology. If occipital pain does not improve with Botox, could consider returning to pain management for JULIANE block. She plans to pursue medical marijuana as well with local provider. The following are the current problems noted and addressed during this visit: Cervical dystonia (primary encounter diagnosis) Occipital neuralgia, unspecified laterality Plan 11/10/2021 Visit: PA for Botox - plan to inject right SCM, splenius for posture and movement. For pain: right semispinalis, scalene, trapezius, levator trigger point, occipitalis (maybe bilateral) Diagnosis: Cervical dystonia (G24.3) Current Examination: above Special Features: Pulling and Posturing Functional Limitations: 2(moderate) Pain: Yes (location)neck, head Date of Diagnosis:11/10/21 Estimated Duration of treatment: Will reassess after 1year Frequency of treatment: 90days What other treatments have been tried and failed: Physical Therapy, Medications, and chiropractor, massage, dry needling Next Appointment Notes: Send Staff Message to RN to start process for neurotoxin prior authorization. Procedure Note: [id number] Neurotoxin: Yes Botox: [id number] Dose: 300 units Administered with EMG guidance: Yes Updated Movement Disorders Medication Schedule: Level of service : 20645 (60-74) min). Time spent 64 min on the day of service, which included preparing to see the patient, [id number] patient care, completing clinical documentation, performing a medically appropriate examination, counseling and educating the patient/family/caregiver and care coordination (not separately reported). Thank you for allowing me to be part of the clinical care of this patient! I look forward to continued participation in the patient s care with you. Please do not hesitate to call with any questions. Sincerely, hSyla Meyer MD documented in this encounter [facility] 10-31-2021 Miscellaneous Notes Patient notified. Verbalized understanding. They told me they could not complete the MRI's. I see she has her neurology appt in 10 days, lets just keep that and have them decide what next steps should be. Call if symptoms worsen. ----- Message from RT Jose Armando(Travon) sent at 10/30/2021 3:01 PM EDT ----- Regarding: MRI Scans I just wanted to send you a note and let you know that we could not complete the MRI scans on Kristin due to the involuntary movement of her head. I tried both head & cervical and all scans came out blurry. Shamika Forbes)(MRI) documented in this encounter [facility] 10-30-2021 History of Present illness Narrative RADIOLOGY SERVICE PROGRESS NOTE DATE OF SERVICE: October 30, 2021 TIME OF SERVICE: 2:20 pm EVENT: EXAM/PROCEDURE NOT COMPLETED - Pt unable to complete exam due to involuntary movement of head. I tried scans on both head & cervical spine and there is motion on all scans. ADDITIONAL EVENT DETAILS: N/A SIGNATURE: RT Jose Armando(Travon) PATIENT NAME: Kristin Sun DATE: October 30, 2021 TIME: 3:00 PM PAGER/CONTACT #: documented in this encounter [facility] 10-12-2021 History of Present illness Narrative Patient presents with: Tremor: head HPI: Patient presents today for office visit for acute visit. She initially stated she had head shaking. Started approximately three to four years ago. No previous head or neck trauma. She actually describes neck tightness an soreness in the posterior neck. Her deep tissue therapist says she has a very tight neck. She states this is different than a tremor. Her neck will occasionally vibrate side to side and will at times tighten up and try to point her head to the left. Has done physical therapy. Had xray done in 2018 and repeat in July. Had deep tissue massage. Has seen Dr. Cantu for the same and had injections. She does feel there is a component of involuntary tremor as well. No significant numbness or weakness in the arms No injury. Has headache that can radiate from either side on the occiput to either side of the forehead. Can be quite severe. At times her balance can feel as if it is off. No tremor elsewhere. No family hx of tremor. At times the side to side tremor is significant enough she will actually hold her head to focus her vision. Back of the neck is always sore. No chest pain No shortness of breath. No syncope. bp is well controlled. See previous xray 4 views of the cervical spine demonstrate multilevel degenerative change with vertebral body osteophytosis and disc space narrowing, greatest at C5-6 and C6-7 where there is mild reversal of the normal cervical lordosis.. There are no vertebral body compression deformities and alignment is well maintained. Bilateral oblique views demonstrate mild to moderate foraminal narrowing at C4-5 and C7-T1 on the left and at C6-7 on the right. Severe foraminal narrowing is noted at C3-4 and C5-6 on the right and at C5-6 and C6-7 on the left. The atlantoaxial interval and craniocervical junction are intact. There is no prevertebral soft tissue abnormality. MEDICATIONS: Current Outpatient Medications Medication Sig Magnesium 30 mg tablet Take by mouth once daily. Not sure of dosage atorvastatin (LIPITOR) 20 mg tablet Take 1 tablet by mouth once daily. hydroCHLOROthiazide 12.5 mg capsule Take 1 capsule by mouth once daily. cyclobenzaprine (FLEXERIL) 10 mg tablet Take 1 tablet by mouth three times daily as needed for muscle spasm. calcium carbonate/vitamin D3 (CALCIUM WITH VITAMIN D3 ORAL) Take 1 tablet by mouth once daily. coenzyme Q10 (CO Q-10) 100 mg cap capsule Take 1 capsule by mouth once daily. No current facility-administered medications for this visit. ALLERGIES: ALLERGIES Allergen Reactions Cashew Nut PAST MEDICAL HISTORY Diagnosis Date Essential hypertension, benign Hemorrhoids with eating cashews Hyperlipidemia LDL goal < 130 09/29/2010 PMH - PAST MEDICAL HISTORY OF Right toe spur PAST SURGICAL HISTORY Procedure Laterality Date COLONOSCOPY FLX DX W/COLLJ SPEC WHEN PFRMD 06/23/082017 COLONOSCOPY FLX DX W/COLLJ SPEC WHEN PFRMD 05/30/2018 Colonoscopy PAST SURGICAL HISTORY OF 05/2007 right 1st MPJ arthodesis with ORIF TONSILLECTOMY & ADENOIDECTOMY <AGE 12 T/A (under age 12 years) FAMILY HISTORY Problem Relation Age of Onset Alzheimer's Disease Mother Osteoporosis Mother Hypertension Father 84 Lipids Father Arthritis Paternal Grandmother other (CVA) Paternal Grandmother 66 Social History Tobacco Use Smoking status: Never Smoker Smokeless tobacco: Never Used Substance Use Topics Alcohol use: Yes Comment: 1 bethany per week Drug use: No Reviewed current medications, allergies, past medical history, surgical history, family history and social history today. REVIEW OF SYSTEMS All other reviewed and negative other than HPI. VITALS: BP 132/84 Pulse 72 Wt 76.2 kg (168 lb) BMI 30.73 kg/m Last 4 Encounter Wt Readings: Date: Wt: 10/12/2021 76.2 kg (168 lb) 05/11/2021 76.2 kg (168 lb) 05/09/2020 77.6 kg (171 lb) 04/27/2019 79.4 kg (175 lb) PHYSICAL EXAMINATION: General appearance: Well appearing, alert, in no acute distress, well-hydrated, well nourished. Skin: Skin color, texture, turgor normal, no suspicious rashes or lesions Head: Normocephalic, no masses, lesions, tenderness or abnormalities Neck: is tight on the right posterior head with slight tilt to the left. No massess Back: Normal exam Lungs: Lungs clear to auscultation. No wheezing, rhonchi, rales Heart: RRR without murmur, gallop, or rubs. No ectopy Abdomen: Normal abdominal exam, Abdomen soft, non-tender. Bowel sounds normal. No masses, organomegaly Extremities: No deformities, edema, skin discoloration, clubbing or cyanosis. Good capillary refill. Musculoskeletal: No joint swelling, deformity, or tenderness Peripheral pulses: Normal Neuro: Gait normal. Reflexes normal and symmetric. Sensation grossly intact., Negative findings: speech normal, mental status intact, muscle tone normal, fine tremor of head at rest. No tremor noted of extremities, normal finger to nose. ASSESSMENT/PLAN: 1. DDD (degenerative disc disease), cervical - ICD9: 722.4, ICD10: M50.30 (primary diagnosis) - see neuro. Get MRI of neck to rule out lesion - MRI CERVICAL SPINE WO IVCON - CONSULT TO NEUROLOGY 2. Chronic mixed headache syndrome - ICD9: 339.89, ICD10: G44.89 - as above. - Red flags for re-assessment reviewed with patient in detail. - MRI BRAIN WO IVCON - CONSULT TO NEUROLOGY 3. Torticollis - ICD9: 723.5, ICD10: M43.6 - as above. - MRI CERVICAL SPINE WO IVCON - CONSULT TO NEUROLOGY 4. Tremor - ICD9: 781.0, ICD10: R25.1 - CBC + DIFF - BASIC METABOLIC PNL - TSH BLD - MRI BRAIN WO IVCON - CONSULT TO NEUROLOGY Pascual Patton RTO prn. documented in this encounter [facility] 10-12-2021 Nurse Note Tremors of head. Progressively getting worse. Causes issues with gait because almost throws balance off. Neck muscles very tight. Causes headaches that come from neck up over head. Can make sleep difficult from pain. Driving with the tremors has also become more difficult. At the end of the day muscles in neck at exhausted. documented in this encounter [facility] 10-09-2021 Miscellaneous Notes TC to pt, appt scheduled with Dr. Patton on 10/12 @ 1pm. Brien Martinez LPN TC to pt, left message to contact office. Patient having worsen of head shakes which is affecting her driving. Patient is scheduled with [facility] on November 03. Patient asking if there is anyway she can be seen sooner, either in the office or VV. This PSS searched both types of appointments with [facility] or Dr. Patton and October 31 and were first available. Please advise and call patient. Thank you documented in this encounter [facility] documented as of this encounter (statuses as of 10/09/2021) [facility] History of Past illness Narrative* Problem Noted Date Resolved Date Inflamed seborrheic keratosis 07/23/2007 Pain in joint, shoulder region 05/16/2007 0 03/29/2017 Major depressive disorder, single episode, unspe cified 04/29/2006 03/29/2017 documented as of this encounter (statuses as of 10/12/2021) [facility] History of Past illness Narrative* Problem Noted Date Resolved Date Inflamed seborrheic keratosis 07/23/2007 Pain in joint, shoulder region 05/16/2007 0 03/29/2017 Major depressive disorder, single episode, unspe cified 04/29/2006 03/29/2017 documented as of this encounter (statuses as of 10/31/2021) [facility] History of Past illness Narrative* Problem Noted Date Resolved Date Inflamed seborrheic keratosis 07/23/2007 Pain in joint, shoulder region 05/16/2007 0 03/29/2017 Major depressive disorder, single episode, unspe cified 04/29/2006 03/29/2017 documented as of this encounter (statuses as of 11/10/2021) [facility] History of Past illness Narrative* Problem Noted Date Resolved Date Inflamed seborrheic keratosis 07/23/2007 Pain in joint, shoulder region 05/16/2007 0 03/29/2017 Major depressive disorder, single episode, unspe cified 04/29/2006 03/29/2017 documented as of this encounter (statuses as of 12/04/2021) [facility] History of Past illness Narrative* Problem Noted Date Resolved Date Inflamed seborrheic keratosis 07/23/2007 Pain in joint, shoulder region 05/16/2007 0 03/29/2017 Major depressive disorder, single episode, unspe cified 04/29/2006 03/29/2017 documented as of this encounter (statuses as of 12/22/2021) [address]23-2008 History of Past illness Narrative* Problem Noted Date Resolved Date Inflamed seborrheic keratosis 07/23/2007 Pain in joint, shoulder region 05/16/2007 0 03/29/2017 Major depressive disorder, single episode, unspe cified 04/29/2006 03/29/2017 documented as of this encounter (statuses as of 12/22/2021) [facility] History of Past illness Narrative* Problem Noted Date Resolved Date Inflamed seborrheic keratosis 07/23/2007 Pain in joint, shoulder region 05/16/2007 0 03/29/2017 Major depressive disorder, single episode, unspe cified 04/29/2006 03/29/2017 documented as of this encounter (statuses as of 12/26/2021) [facility] History of Past illness Narrative* Problem Noted Date Resolved Date Inflamed seborrheic keratosis 07/23/2007 Pain in joint, shoulder region 05/16/2007 0 03/29/2017 Major depressive disorder, single episode, unspe cified 04/29/2006 03/29/2017 documented as of this encounter (statuses as of 01/17/2022) [facility] History of Past illness Narrative* Problem Noted Date Resolved Date Inflamed seborrheic keratosis 07/23/2007 Pain in joint, shoulder region 05/16/2007 0 03/29/2017 Major depressive disorder, single episode, unspe cified 04/29/2006 03/29/2017 documented as of this encounter (statuses as of 02/19/2022) [facility]2008 History of Past illness Narrative* Problem Noted Date Resolved Date Inflamed seborrheic keratosis 07/23/2007 Pain in joint, shoulder region 05/16/2007 0 03/29/2017 Major depressive disorder, single episode, unspe cified 04/29/2006 03/29/2017 documented as of this encounter (statuses as of 02/26/2022) [address]23-2008 History of Past illness Narrative* Problem Noted Date Resolved Date Inflamed seborrheic keratosis 07/23/2007 Pain in joint, shoulder region 05/16/2007 0 03/29/2017 Major depressive disorder, single episode, unspe cified 04/29/2006 03/29/2017 documented as of this encounter (statuses as of 05/02/2022) [place] [address]2008 History of Past illness Narrative* Problem Noted Date Resolved Date Inflamed seborrheic keratosis 07/23/2007 Pain in joint, shoulder region 05/16/2007 0 03/29/2017 Major depressive disorder, single episode, unspe cified 04/29/2006 03/29/2017 documented as of this encounter (statuses as of 08/09/2022) [address] History of Past illness Narrative* Problem Noted Date Resolved Date Inflamed seborrheic keratosis 07/23/2007 Pain in joint, shoulder region 05/16/2007 0 03/29/2017 Major depressive disorder, single episode, unspe cified 04/29/2006 03/29/2017 documented as of this encounter (statuses as of 09/20/2022) [address]23-2008 History of Past illness Narrative* Problem Noted Date Resolved Date Inflamed seborrheic keratosis 07/23/2007 Pain in joint, shoulder region 05/16/2007 0 03/29/2017 Major depressive disorder, single episode, unspe cified 04/29/2006 03/29/2017 documented as of this encounter (statuses as of 12/21/2022) [address]23-2008 History of Past illness Narrative* Problem Noted Date Resolved Date Inflamed seborrheic keratosis 07/23/2007 Pain in joint, shoulder region 05/16/2007 0 03/29/2017 Major depressive disorder, single episode, unspe cified 04/29/2006 03/29/2017 documented as of this encounter (statuses as of 12/29/2022) [facility]2008 History of Past illness Narrative* Problem Noted Date Diagnosed Date Resolved Date Inflamed seborrheic keratosis 07/23/2007 03/29/2017 Pain in joint, shoulder region 05/16/2007 03/29/2017 Major depressive disorder, s shaniqua episode, unspecified 04/29/2006 03/29/2017 documented as of this encounter (statuses as of 01/23/2023) [facility]2008 History of Past illness Narrative* Problem Noted Date Diagnosed Date Resolved Date Inflamed seborrheic keratosis 07/23/2007 03/29/2017 Pain in joint, shoulder region 05/16/2007 03/29/2017 Major depressive disorder, s shaniqua episode, unspecified 04/29/2006 03/29/2017 documented as of this encounter (statuses as of 05/05/2023) [facility] History of Past illness Narrative* Problem Noted Date Diagnosed Date Resolved Date Inflamed seborrheic keratosis 07/23/2007 03/29/2017 Pain in joint, shoulder region 05/16/2007 03/29/2017 Major depressive disorder, s shaniqua episode, unspecified 04/29/2006 03/29/2017 documented as of this encounter (statuses as of 05/05/2023) [facility] History of Past illness Narrative* Problem Noted Date Diagnosed Date Resolved Date Inflamed seborrheic keratosis 07/23/2007 03/29/2017 Pain in joint, shoulder region 05/16/2007 03/29/2017 Major depressive disorder, s shaniqua episode, unspecified 04/29/2006 03/29/2017 documented as of this encounter (statuses as of 06/11/2023) [facility] Diagnosis DDD (degenerative disc disease), cervical- Primary Degeneration of cervical intervertebral disc Chronic mixed headache syndrome Other headache syndromes Torticollis Torticollis, unspecified Tremor Abnormal involuntary movements [facility] Diagnosis DDD (degenerative disc disease), cervical Degeneration of cervical intervertebral disc Torticollis Torticollis, unspecified documented [facility] this [facility] Diagnosis Chronic mixed headache syndrome Other headache syndromes Tremor Abnormal involuntary movements [facility] Diagnosis Cervical dystonia- Primary Spasmodic torticollis Chronic mixed headache syndrome Other headache syndromes DDD (degenerative disc disease), cervical Degeneration of cervical intervertebral disc Torticollis Torticollis, unspecified Tremor Abnormal involuntary movements Occipital neuralgia, unspecified laterality documented [facility] this [facility] Diagnosis Encounter for screening mammogram for breast cancer documented in this encounter [facility] note* Diagnosis Encounter for screening mammogram for breast cancer documented in this encounter [facility] note* Diagnosis Cervical dystonia- Primary Spasmodic torticollis documented in this encounter [facility] note* Diagnosis Cervical dystonia- Primary Spasmodic torticollis documented in this encounter [facility] note* Diagnosis Cervical dystonia- Primary Spasmodic torticollis [facility] Diagnosis Cervical dystonia- Primary Spasmodic torticollis documented [facility] this [facility] Diagnosis Cervical dystonia- Primary Spasmodic torticollis documented in this encounter [facility]* Diagnosis Cervical dystonia- Primary Spasmodic torticollis documented in this encounter [facility]* Diagnosis Asymptomatic postmenopausal status documented in this encounter [facility] note* Diagnosis Encounter for screening mammogram for breast cancer [facility] Diagnostic Procedure Only (Routine) - Authorized Specialty Diagnoses / Procedures Referred By Mayra king Referred To Contact [facility] Diagnoses Encounter for screening mammogram for breast cancer Procedures WYATT SCREENING SCREENING MAMMOGRAPHY BI 2-VIEW BREAST INC Pascual Valverde MD [address] [place] [address] [facility] [address] [place] [address] Referral ID Status Reason Start Date Expiration Date Visits Requested Visits Authorized [id number] Authorized Auto-Generat ed Referral 11/29/2021 12/29/2022 1 1 [facility] Diagnostic Procedure Only (Routine) - Closed Specialty Diagnoses / Procedures Referred By Mayra king Referred To Contact [facility] Diagnoses Encounter for screening mammogram for breast cancer Procedures WYATT SCREENING SCREENING MAMMOGRAPHY BI 2-VIEW BREAST INC Pascual Vavlerde MD [address] [place] [address] [facility] [address] [place] [address] Referral ID Status Reason Start Date Expiration Date V isits Requested Visits Authorized [id number] Closed Auto-Generate d Referral 11/29/2021 12/29/2022 1 1 [facility] for referral (narrative)* Diagnostic Procedure Only (Routine) - Closed Specialty Diagnoses / Procedures Referred By Contac t Referred To Contact [facility] Diagnoses Encounter for screening mammogram for breast cancer Procedures WYATT SCREENING SCREENING MAMMOGRAPHY BI 2-VIEW BREAST INC Pascual Valverde MD [address] [place] [address] [facility] [address] [place] [address] Referral ID Status Reason Start Date Expiration Date V isits Requested Visits Authorized [id number] Closed Auto-Generate d Referral 11/22/2022 12/22/2023 1 1 [facility] for visit Narrative* Diagnostic Procedure Only (Routine) - Closed Specialty Diagnoses / Procedures Referred By Contac t Referred To Contact [facility] Diagnoses Encounter for screening mammogram for breast cancer Procedures WYATT SCREENING SCREENING MAMMOGRAPHY BI 2-VIEW BREAST INC Pascual Valverde MD [address] [place] [address] [facility] [address] [place] [address] Referral ID Status Reason Start Date Expiration Date V isits Requested Visits Authorized [id number] Closed Auto-Generate d Referral 11/29/2021 12/29/2022 1 1 [facility] for visit Narrative* Diagnostic Procedure Only (Routine) - Closed Specialty Diagnoses / Procedures Referred By Contac t Referred To Contact [facility] Diagnoses Encounter for screening mammogram for breast cancer Procedures WYATT SCREENING SCREENING MAMMOGRAPHY BI 2-VIEW BREAST INC Pascual Valverde MD [facility] [place] [address] [facility] [address] [place] [place] [address] Referral ID Status Reason Start Date Expiration Date V isits Requested Visits Authorized [id number] Closed Auto-Generate d Referral 11/22/2022 12/22/2023 1 1 [facility] Advance Directives No Advanced Directives Records FoundDocuments on File Type Date Recorded Patient Hospital Orderly Expl anation Advance Directive(s) 05/30/2018 9:20 AM Documents on File Type Date Recorded Patient Hospital Orderly Expl anation Advance Directive(s) 05/30/2018 9:20 AM Reason for Referral Specialty Diagnoses / Procedures Referred By Contac t Referred To Contact Neurology Diagnoses Chronic mixed headache syndrome DDD (degenerative disc disease), cervical Torticollis Tremor Procedures CONSULT TO NEUROLOGY OFFICE/OUTPATIENT [facility] MDM 60-74 MINUTES Pascual Patton MD [address] [place] [address] Referral ID Status Reason Start Date Expiration Date Visits Requested Visits Authorized [id number] Authorized PCP Requested Referral 10/12/2021 10/12/2022 1 1 Specialty Diagnoses / Procedures Referred By Contac t Referred To Contact [facility] Diagnoses DDD (degenerative disc disease), cervical Torticollis Procedures MRI CERVICAL SPINE WO IVCON MRI SPINAL CANAL CERVICAL W/O CONTRAST MATRL Pascual Patton MD [address] [place] [address] [facility] Referral ID Status Reason Start Date Expiration Date Visits Requested Visits Authorized [id number] Authorized Auto-Generat ed Referral 10/12/2021 11/11/2022 1 1 Specialty Diagnoses / Procedures Referred By Contac t Referred To Contact [facility] Diagnoses Chronic mixed headache syndrome Tremor Procedures MRI BRAIN WO IVCON MRI BRAIN BRAIN STEM W/O CONTRAST MATERIAL Pascual Patton MD [address] [place] [address] [facility] Referral ID Status Reason Start Date Expiration Date Visits Requested Visits Authorized [id number] Authorized Auto-Generat ed Referral 10/12/2021 11/11/2022 1 1 Specialty Diagnoses / Procedures Referred By Contac t Referred To Contact [facility] Diagnoses Cervical dystonia Procedures CONSULT TO PHYSICAL THERAPY PHYSICAL THERAPY EVALUATION [facility] COMPLEX 45 MINS Shyla Meyer MD [address] [address] [facility] [address] [place] [address] Referral ID Status Reason Start Date Expiration Date Visits Requested Visits Authorized [id number] Authorized PCP Requested Referral Auto-Generate d Referral 12/22/2021 12/22/2022 99 99 Medications Administered Section Inactive Administered Medications - up to 3 most recent administrations Medication Order MAR Action Action Date Dose Rate Site onabotulinum toxin type A 200 Units injection (BOTOX) 200 Units, INTRAMUSCULAR, ONCE, 1 dose, On Sat12/22/21 at 1030, REFRIGERATE - Pharmaceutical Waste: Lab Pack - Given 12/22/2021 11:33 AM EDT 170 Units Other Inactive Administered Medications - up to 3 most recent administrations Medication Order MAR Action Action Date Dose Rate Site onabotulinum toxin type A 200 Units injection (BOTOX) 200 Units, INTRAMUSCULAR, ONCE, 1 dose, On Sat05/02/22 at 1030, REFRIGERATE - Pharmaceutical Waste: Lab Pack - Given 05/02/2022 12:59 PM EDT 200 Units Other Inactive Administered Medications - up to 3 most recent administrations Medication Order MAR Action Action Date Dose Rate Site onabotulinum toxin type A 200 Units injection (BOTOX) 200 Units, INTRAMUSCULAR, ONCE, 1 dose, On Sat09/20/22 at 1430, REFRIGERATE - Pharmaceutical Waste: Lab Pack - Given 09/20/2022 3:01 PM EDT 200 Units Other Inactive Administered Medications - up to 3 most recent administrations Medication Order MAR Action Action Date Dose Rate Site onabotulinum toxin type A 200 Units injection (BOTOX) 200 Units, INTRAMUSCULAR, ONCE, 1 dose, On Sat01/23/23 at 1430, REFRIGERATE - Pharmaceutical Waste: Lab Pack - Given 01/23/2023 2:47 PM EDT 200 Units Other Summary Purpose Family History No Family History Records Found Additional Source Comments Source Comments (unrecognize d section and content) In the event this informatio n is protected by the Federal Confidentiality of Alcohol and Drug Abuse Patient Records regulations: The Federal rules restrict any use of the information to criminally investigate or prosecute any alcohol or drug abuse patient.[facility] the event this information is protected by the Federal Confidentiality of Alcohol and Drug Abuse Patient Records regulations: The Federal rules restrict any use of the information to criminally investigate or prosecute any alcohol or drug abuse patient.[facility] the event this information is protected by the Federal Confidentiality of Alcohol and Drug Abuse Patient Records regulations: The Federal rules restrict any use of the information to criminally investigate or prosecute any alcohol or drug abuse patient.[facility] the event this information is protected by the Federal Confidentiality of Alcohol and Drug Abuse Patient Records regulations: The Federal rules restrict any use of the information to criminally investigate or prosecute any alcohol or drug abuse patient.[facility] the event this information is protected by the Federal Confidentiality of Alcohol and Drug Abuse Patient Records regulations: The Federal rules restrict any use of the information to criminally investigate or prosecute any alcohol or drug abuse patient.[facility] the event this information is protected by the Federal Confidentiality of Alcohol and Drug Abuse Patient Records regulations: The Federal rules restrict any use of the information to criminally investigate or prosecute any alcohol or drug abuse patient.[facility] the event this information is protected by the Federal Confidentiality of Alcohol and Drug Abuse Patient Records regulations: The Federal rules restrict any use of the information to criminally investigate or prosecute any alcohol or drug abuse patient.[facility] the event this information is protected by the Federal Confidentiality of Alcohol and Drug Abuse Patient Records regulations: The Federal rules restrict any use of the information to criminally investigate or prosecute any alcohol or drug abuse patient.[facility] the event this information is protected by the Federal Confidentiality of Alcohol and Drug Abuse Patient Records regulations: The Federal rules restrict any use of the information to criminally investigate or prosecute any alcohol or drug abuse patient.[facility] the event this information is protected by the Federal Confidentiality of Alcohol and Drug Abuse Patient Records regulations: The Federal rules restrict any use of the information to criminally investigate or prosecute any alcohol or drug abuse patient.[facility] the event this information is protected by the Federal Confidentiality of Alcohol and Drug Abuse Patient Records regulations: The Federal rules restrict any use of the information to criminally investigate or prosecute any alcohol or drug abuse patient.[facility] the event this information is protected by the Federal Confidentiality of Alcohol and Drug Abuse Patient Records regulations: The Federal rules restrict any use of the information to criminally investigate or prosecute any alcohol or drug abuse patient.[facility] the event this information is protected by the Federal Confidentiality of Alcohol and Drug Abuse Patient Records regulations: The Federal rules restrict any use of the information to criminally investigate or prosecute any alcohol or drug abuse patient.[facility] the event this information is protected by the Federal Confidentiality of Alcohol and Drug Abuse Patient Records regulations: The Federal rules restrict any use of the information to criminally investigate or prosecute any alcohol or drug abuse patient.[facility] the event this information is protected by the Federal Confidentiality of Alcohol and Drug Abuse Patient Records regulations: The Federal rules restrict any use of the information to criminally investigate or prosecute any alcohol or drug abuse patient.[facility] the event this information is protected by the Federal Confidentiality of Alcohol and Drug Abuse Patient Records regulations: The Federal rules restrict any use of the information to criminally investigate or prosecute any alcohol or drug abuse patient.[facility] the event this information is protected by the Federal Confidentiality of Alcohol and Drug Abuse Patient Records regulations: The Federal rules restrict any use of the information to criminally investigate or prosecute any alcohol or drug abuse patient.[facility] the event this information is protected by the Federal Confidentiality of Alcohol and Drug Abuse Patient Records regulations: The Federal rules restrict any use of the information to criminally investigate or prosecute any alcohol or drug abuse patient.[facility] the event this information is protected by the Federal Confidentiality of Alcohol and Drug Abuse Patient Records regulations: The Federal rules restrict any use of the information to criminally investigate or prosecute any alcohol or drug abuse patient.[facility] the event this information is protected by the Federal Confidentiality of Alcohol and Drug Abuse Patient Records regulations: The Federal rules restrict any use of the information to criminally investigate or prosecute any alcohol or drug abuse patient.[facility] the event this information is protected by the Federal Confidentiality of Alcohol and Drug Abuse Patient Records regulations: The Federal rules restrict any use of the information to criminally investigate or prosecute any alcohol or drug abuse patient.[facility] the event this information is protected by the Federal Confidentiality of Alcohol and Drug Abuse Patient Records regulations: The Federal rules restrict any use of the information to criminally investigate or prosecute any alcohol or drug abuse patient.[facility] Reason for Visit (unrecogniz ed section and content) Reason Comments Tremor head Reason Comments Results Reason Comments New Patient Torticollis and Trem or Specialty Diagnoses / Procedures Referred By Mayra king Referred To Contact Neurology Diagnoses Chronic mixed headache syndrome DDD (degenerative disc disease), cervical Torticollis Tremor Procedures CONSULT TO NEUROLOGY OFFICE/OUTPATIENT NEW HIGH MDM 60-74 MINUTES Pascual Patton MD [address] [place] [address] Referral ID Status Reason Start Date Expiration Date V isits Requested Visits Authorized [id number] Closed PCP Requested Referral 10/12/2021 10/12/2022 1 1 Reason Comments Neurotoxin Injection Reason Comments Patient Question Botos Side Effects Reason Comments Other Initial Evaluation f or Rehabilitation Services Reason Comments Opened In Error Reason Comments Neurotoxin Injection Reason Onset Date Comments Refill Request 06/07/2023 Care Teams (unrecognized sec tion and content) Communication Equipment Mechanic Relationship Specialty Start Date End Date Pascual Patton MD [address] [facility] [place] [address] PCP - General Family Practice 05/11/21 Communication Equipment Mechanic Relationship Specialty Start Date End Date Pascual Patton MD [address] [facility] [place] [address] PCP - General Family Practice 05/11/21 Communication Equipment Mechanic Relationship Specialty Start Date End Date Pascual Patton MD [address] [facility] [place] [address] PCP - General Family Practice 05/11/21 Communication Equipment Mechanic Relationship Specialty Start Date End Date Pascual Patton MD [address] [facility] [place] [address] PCP - General Family Practice 05/11/21 Communication Equipment Mechanic Relationship Specialty Start Date End Date Pascual Patton MD [address] [facility] [place] [address] PCP - General Family Practice 05/11/21 Communication Equipment Mechanic Relationship Specialty Start Date End Date Pascual Patton MD [address] [facility] [place] [address] PCP - General Family Practice 05/11/21 Communication Equipment Mechanic Relationship Specialty Start Date End Date Pascual Patton MD [address] [facility] [place] [address] PCP - General Family Practice 05/11/21 Communication Equipment Mechanic Relationship Specialty Start Date End Date Pascual Patton MD [address] [facility] [place] [address] PCP - General Family Practice 05/11/21 Communication Equipment Mechanic Relationship Specialty Start Date End Date Pascual Patton MD [address] [facility] [place] [address] PCP - General Family Practice 05/11/21 Communication Equipment Mechanic Relationship Specialty Start Date End Date Pascual Patton MD [address] [facility] [place] [address] PCP - General Family Practice 05/11/21 Communication Equipment Mechanic Relationship Specialty Start Date End Date Pascual Patton MD [address] [place] [address] PCP - General Family Practice 05/11/21 Communication Equipment Mechanic Relationship Specialty Start Date End Date Pascual Patton MD [address] [place] [address] PCP - General Family Medicine 05/11/21 Communication Equipment Mechanic Relationship Specialty Start Date End Date Pascual Patton MD [address] [place] [address] PCP - General Family Medicine 05/11/21 Communication Equipment Mechanic Relationship Specialty Start Date End Date Pascual Patton MD [address] [place] [address] PCP - General Family Medicine 05/11/21 Communication Equipment Mechanic Relationship Specialty Start Date End Date Pascual Patton MD [address] [place] [address] PCP - General Family Medicine 05/11/21 Communication Equipment Mechanic Relationship Specialty Start Date End Date Pascual Patton MD [address] [place] [address] PCP - General Family Medicine 05/11/21 Communication Equipment Mechanic Relationship Specialty Start Date End Date Pascual Patton MD [address] [place] [address] PCP - General Family Medicine 05/11/21 Communication Equipment Mechanic Relationship Specialty Start Date End Date Pascual Patton MD [address] [place] [address] PCP - General Family Medicine 05/11/21 Communication Equipment Mechanic Relationship Specialty Start Date End Date Pascual Patton MD [address] [place] [address] PCP - General Family Medicine 05/11/21 INFORMATION SOURCE (unrecogn ized section and content) FOR RECORDS PERTAINING TO PATIENTS WHO ARE OR HAVE BEEN ENROLLED IN A CHEMICAL DEPENDENCY/SUBSTANCEABUSE PROGRAM, SOME INFORMATION MAY BE OMITTED. This clinical summary was aggregated from multiple sources. Caution should be exercised in using it in the provision of clinical care. This summary normalizes information from multiple sources, and as a consequence, information in this document may materially change the coding, format and clinical context of patient data. In addition, data may be omitted in some cases. CLINICAL DECISIONS SHOULD BE BASED ON THE PRIMARY CLINICAL RECORDS. [facility] provides no warranty or guarantee of the accuracy or completeness of information in this document.
== END | disposition home or self-care (01) ==
LOC: MRI 15:32
PROVIDERS: PCP Family Medicine; Referring Provider Anesthesiology Pain Medicine; Visit Provider Anesthesiology Pain Medicine
DX: M54.12 Radiculopathy, cervical region (principal)